=== PATIENT | female | born 1945 | race Caucasian/White ===

== ENCOUNTER 2024-01-06 12:29 | Outpatient (CLI) | payer MEDICARE, SELFPAY ==
--- NOTE | 2024-01-06 12:45 | USCV_ITS ---
Latosha [place] Age: 78 Gender: F : 1945 Exam Date: 01/06/2024 13:23 Ordering Phys: Paco Jo Technologist: [place] [facility] [place]: stenosis, previous left cea Risk Factors: Previous Vascular Surgery: Right Brachial BP: / Left Brachial BP: / Right Left Velocity (cm/s) Spectral Plaque Velocity (cm/s) Spectral Plaque Syst/Diast Broadening Syst/Diast Broadening 27.80/ 13.00 Prox CCA 56.70 / 16.50 35.10/ 17.90 Mid CCA 74.00 / 22.10 38.40/ 17.90 Distal CCA 65.10 / 20.50 278.50/90.40 Prox ICA 92.10 / 23.70 51.10/ 22.30 Mid ICA 102.30/ 20.70 31.20/ 16.50 Distal ICA 95.00 / 23.60 96.90 ECA 84.20 7.30 ICA/CCA 1.40 Bi- Vertebral Antegrade directiona l 18.00/ 0.00 cm/s 89.70/ 13.00 cm/s Bi Subclavian Bi 60.20 168.7 0 CONCLUSIONS Right ICA stenosis 70-99%. Severe atheromatous plaque right carotid bulb/ICA. Recommend neck CTA Left ICA stenosis <50%. Prior left CEA Bi directional Doppler flow noted in the right vertebral artery suggesting early subclavian steal. Normal antegrade Doppler flow noted in the left vertebral artery. Taj Benitez MD (Electronically Signed) Final Date: 06 January 2024 17:01 S
--- NOTE | 2024-01-06 13:45 | USCV_ITS ---
[facility] 78 Gender: F : 1945 Exam Date: 01/06/2024 12:44 Ordering Phys: Paco Jo Technologist: Exam Location: [facility] [place] Indication: cad BP: 170 / 100 HR: Rhythm: Sinus Technical Quality: Adequate MEASUREMENTS (Male / Female) Normal Values 2D ECHO LA Diameter 3.6 cm Aorta at Sinotubular Diameter 2.2 cm DOPPLER AV Peak Velocity 128.0 cm/s LVOT Peak Velocity 96.0 cm/s MV Area PHT 2.0 cm squared Mitral E to A Ratio 0.6 TR Peak Velocity 194.0 cm/s TR Peak Gradient 15.1 mmHg PV Peak Velocity 85.0 cm/s FINDINGS Left Ventricle Left ventricle is normal size. LV systolic function is normal with EF of 60-65%. No regional wall motion abnormalities are seen. Moderate left ventricular hypertrophy. Grade 1 diastolic dysfunction Right Ventricle Normal in size and function Right Atrium Normal in size Left Atrium Normal in size Mitral Valve Moderate mitral annular calcification. Mild mitral regurgitation. Aortic Valve Aortic valve is thickened. No significant stenosis or regurgitation. Tricuspid Valve Trace tricuspid regurgitation. Insufficient TR jet to evaluate RVSP. Pulmonic Valve Mild to moderate pulmonic regurgitation. Pericardium Normal Aorta Normal in size IVC Appears to be normal CONCLUSIONS LV systolic function is normal with EF of 60-65% Moderate left ventricular hypertrophy Grade 1 diastolic dysfunction Mild mitral regurgitation Trace tricuspid regurgitation Mild to moderate pulmonic regurgitation Compared to prior echocardiogram from 2016, no significant changes are seen Srinivas Singletary MD (Electronically Signed) Final Date: 21 January 2024 10:43 S
== END 2024-01-06 12:30 | disposition home or self-care (01) ==
LOC: RAD 12:30
PROVIDERS: Family Provider Nurse Practitioner; PCP Nurse Practitioner; Visit Provider Nurse Practitioner
DX: I34.0 Nonrheumatic mitral (valve) insufficiency (principal); I37.1 Nonrheumatic pulmonary valve insufficiency; I51.7 Cardiomegaly; I65.23 Occlusion and stenosis of bilateral carotid arteries
CPT/HCPCS: 93306; 93880

== ENCOUNTER 2024-01-08 09:00 | Outpatient (CLI) | payer MEDICARE, SELFPAY ==
[2024-01-08] MEDS: iohexol 350 mg/mL 500 mL Btl (per mL) IV (09:25)
--- NOTE | 2024-01-08 09:30 | CT_ITS ---
WS: [id number] CTA HEAD AND NECK TECHNIQUE: Contrast enhanced CTA of the head and neck with coronal and sagittal reformatted images an d maximum intensity projection (MIP) images. NASCET criteria utilized. CLINICAL INFORMATION: I65.21 - Occlusion and stenosis of right carotid artery COMPARISON: 2014 DLP: 1194.[address] scans at [facility] use at least one of these dose optimization techniques: automated e xposure control; mA and/or kV adjustment per patient size (includes targeted exams where dose is matc hed to clinical indication); or iterative reconstruction. FINDINGS: Mild small vessel changes. Moderate parenchymal volume loss. Tiny chronic lacunar infarct R IGHT caudate. Chronic infarct RIGHT paracentral occipital lobe with encephalomalacia. Partial opacifi cation of the ethmoid air cells. LEFT sphenoid sinusitis. Mastoid air cells are well aerated. Normal posterior nasopharynx. RIGHT: RIGHT common carotid artery is patent. Dense calcified atheromatous plaque RIGHT carotid bulb extending into the ICA. RIGHT CCA/ICA stenosis measures approximately 80% with a tiny residual lumen. Tortuous RIGHT ICA is patent to the skull base. LEFT: Prior LEFT CEA. LEFT common carotid artery is patent. No recurrent LEFT ICA stenosis. LEFT ICA is patent to the skull base. INTRACRANIAL CTA: Both vertebrals are patent. Basilar artery is patent. Normal vascularity to the ROD PLACER territory bilater ally. Patent LEFT posterior communicating artery. Cavernous carotid calcification. Patent anterior communicating artery. Normal vascularity to the JEANINE and MCA territories bilaterally. No evidence of proximal flow-limiting stenosis. Small RIGHT thyroid nodule measuring 3 mm. Advanced chronic emphysematous changes in the lung apices. IMPRESSION: 1. Severe carotid bulb and proximal RIGHT ICA stenosis with densely calcified plaque. Stenosis in th e distal CCA and proximal ICA with a tiny residual lumen measuring approximately 80%. RIGHT ICA remai ns patent to the skull base. 2. No significant or recurrent LEFT ICA stenosis post LEFT CEA 3. Codominant patent vertebral arteries bilaterally. 4.
[2024-01-08 09:31] LABS: Blood Urea Nitrogen 20 mg/dL (8-23)
== END 2024-01-08 09:01 | disposition home or self-care (01) ==
LOC: RAD 09:01
PROVIDERS: Family Provider Nurse Practitioner; PCP Nurse Practitioner; Visit Provider Nurse Practitioner
DX: I65.21 Occlusion and stenosis of right carotid artery (principal)
CPT/HCPCS: 70496; 70498; 82565; 84520; Q9967

== ENCOUNTER → 2024-01-12 12:11 | Outpatient (BNVA) | payer MEDICARE, SELFPAY | PROVIDERS: Family Provider Nurse Practitioner; PCP Nurse Practitioner; Visit Provider Nurse Practitioner | DX: E78.2 Mixed hyperlipidemia (principal); E11.9 Type 2 diabetes mellitus without complications | CPT/HCPCS: 80053; 80061; 83036; 84443; 85025 ==

== ENCOUNTER 2024-01-14 07:43 | Outpatient (CLI) | payer MEDICARE, SELFPAY ==
--- NOTE | 2024-01-14 08:00 | CT_ITS ---
WS: [id number] CT chest wo con [id number] HISTORY: R05.9 - Cough, unspecified TECHNIQUE: Axial imaging performed through the thorax. Coronal and sagittal reformats are submitted. All CT scans at [facility] use at least one of these dose optimization techniques: automated exposure control; mA and/or kV adjustment per patient size (includes targeted exams where dose is mat ched to clinical indication); or iterative reconstruction. CONTRAST: None DLP: 278.25 mGy.cm COMPARISON: Lumbar spine CT 04/07/2016. Lungs and central airway: Severe chronic emphysematous changes. Extensive peripheral interstitial thi ckening with subpleural cystic changes involving the upper and lower lobes. Bilateral interstitial th ickening with scattered areas of groundglass opacification. Subpleural stacking of cysts at the lung bases and bronchiectasis. Pleura: Normal. No pleural effusion. Heart and pericardium: Moderately enlarged heart. Extensive coronary artery calcifications. Mediastinum and jaycee: No adenopathy identified on this unenhanced exam of significance. Vessels: Moderate atherosclerosis aorta. Pulmonary artery size is equal to the aorta. Chest wall and lower neck: No soft tissue masses. Upper abdomen: Small hiatal hernia. Long-term stability LEFT adrenal mass measuring 1.6 x 1.8 cm. No increase in size since 2016. This is probably a benign adenoma. 1.5 cm cyst upper pole LEFT kidney. S plenic artery calcification. Osseous structures: Advanced thoracic spondylitic changes. Large bridging osteophytes along the thora cic spine. IMPRESSION: 1. Chronic interstitial appearing lung disease. There is involvement of both upper and lower lung fi elds. This can be seen with IPF or collagen vascular disease. There is honeycombing and traction bron chiectasis. Patient denied a history of smoking. If there is a history of smoking there are probably superimposed changes of chronic emphysema also. 2. No dense areas of consolidation or pneumonia. Recommend evaluation by pulmonology. 3. Extensive coronary artery calcifications in a moderately enlarged heart. 4. Stable LEFT adrenal mass since 2016. Due to long-term stability this is probably an adenoma.
== END 2024-01-14 07:44 | disposition home or self-care (01) ==
LOC: RAD 07:43
PROVIDERS: Family Provider Nurse Practitioner; PCP Nurse Practitioner; Visit Provider Nurse Practitioner
DX: R05.9 Cough, unspecified (principal); J98.4 Other disorders of lung; J47.9 Bronchiectasis, uncomplicated; I25.10 Atherosclerotic heart disease of native coronary artery without angina pectoris; I51.7 Cardiomegaly; E27.9 Disorder of adrenal gland, unspecified
CPT/HCPCS: 71250

== ENCOUNTER → 2024-01-18 13:14 | Outpatient (BNVA) | payer MEDICARE, SELFPAY | PROVIDERS: Family Provider Nurse Practitioner; PCP Nurse Practitioner; Visit Provider Thoracic Surgery (Cardiothoracic Vascular Surgery) | DX: I65.21 Occlusion and stenosis of right carotid artery (principal); Z87.891 Personal history of nicotine dependence; I10 Essential (primary) hypertension | CPT/HCPCS: 99203 ==

== ENCOUNTER → 2024-01-27 07:44 | Outpatient (BNVA) | payer MEDICARE, SELFPAY | PROVIDERS: Family Provider Nurse Practitioner; PCP Nurse Practitioner; Visit Provider Otolaryngology | DX: R49.0 Dysphonia (principal); J01.90 Acute sinusitis, unspecified; B96.89 Other specified bacterial agents as the cause of diseases classified elsewhere; J34.2 Deviated nasal septum; M95.0 Acquired deformity of nose | CPT/HCPCS: 31575; 99204; 99205 ==

== ENCOUNTER → 2024-02-16 11:00 | Outpatient (BNVA) | payer MEDICARE, SELFPAY | PROVIDERS: Family Provider Nurse Practitioner; PCP Nurse Practitioner; Visit Provider Otolaryngology | DX: J01.90 Acute sinusitis, unspecified (principal); B96.89 Other specified bacterial agents as the cause of diseases classified elsewhere; J34.2 Deviated nasal septum; M95.0 Acquired deformity of nose; R49.0 Dysphonia | CPT/HCPCS: 99212; 99213 ==

== ENCOUNTER → 2024-02-29 08:11 | Outpatient (BNVA) | payer MEDICARE, SELFPAY | PROVIDERS: Family Provider Nurse Practitioner; PCP Nurse Practitioner; Visit Provider Thoracic Surgery (Cardiothoracic Vascular Surgery) | DX: I65.21 Occlusion and stenosis of right carotid artery (principal); Z87.891 Personal history of nicotine dependence; I10 Essential (primary) hypertension | CPT/HCPCS: 99213 ==

== ENCOUNTER 2024-03-29 11:50 | Outpatient (CLI) | payer MEDICARE, MEDICAID, SELFPAY ==
--- NOTE | 2024-03-29 12:15 | CT_ITS ---
WS: [id number] CTA THORACIC TECHNIQUE: Contrast enhanced CTA of the thoracic aorta with coronal and sagittal reformatted images a nd maximum intensity projection (MIP) images. CLINICAL INFORMATION: subclavian stenosis COMPARISON: CTA 01/08/2024. CT chest 01/14/2024. Ultrasound 01/06/2024. DLP: 650.[address] scans at [facility] use at least one of these dose optimization techniques: automated e xposure control; mA and/or kV adjustment per patient size (includes targeted exams where dose is matc hed to clinical indication); or iterative reconstruction. FINDINGS: RIGHT subclavian artery is patent. Moderate calcified plaque at the RIGHT vertebral artery origin wit h severe origin stenosis. RIGHT innominate is patent. RIGHT common carotid artery is patent. LEFT com mon carotid artery is patent. LEFT subclavian artery is patent. LEFT vertebral artery is patent. Normal caliber thoracic aorta. Aortic calcification. Coronary calcification. Tiny RIGHT thyroid nodul e. No mediastinal or hilar lymphadenopathy. No axillary lymphadenopathy. Normal RIGHT adrenal gland. Stable LEFT adrenal lesion. Moderate esophageal hiatal hernia. Small sple nule. Partially visualized LEFT renal cyst. Hypertrophic changes thoracic spine. Advanced chronic emphysematous changes. Traction bronchiectasis and pleural parenchymal scarring jennifer lar to the prior studies. Honeycombing in the lung bases. Findings can be seen with idiopathic pulmon hoda fibrosis. Advanced degenerative arthritis RIGHT glenohumeral joint. CT/CT angio chest [id number] IMPRESSION: 1. RIGHT subclavian artery is patent. Moderate to severe stenosis at the RIGHT vertebral artery origin accounts for abnormal vertebral artery waveforms on th e recent ultrasound. No evidence of subclavian steal. 2. LEFT subclavian artery is patent. 3. Lung findings suspicious for IPF similar to the recent studies. 4. Moderate esophageal hiatal hernia.
[2024-03-29 12:38] LABS: Blood Urea Nitrogen 28 mg/dL (8-23)
== END 2024-03-29 11:51 | disposition home or self-care (01) ==
LOC: RAD 11:50
PROVIDERS: Family Provider Nurse Practitioner; PCP Nurse Practitioner; Visit Provider Thoracic Surgery (Cardiothoracic Vascular Surgery)
DX: I65.01 Occlusion and stenosis of right vertebral artery (principal); J47.9 Bronchiectasis, uncomplicated; R91.8 Other nonspecific abnormal finding of lung field; J98.4 Other disorders of lung; J84.10 Pulmonary fibrosis, unspecified; M13.811 Other specified arthritis, right shoulder
CPT/HCPCS: 71275; 82565; 84520

== ENCOUNTER 2024-05-02 10:22 | Inpatient (IN) | payer MEDICARE, MEDICAID, SELFPAY ==
[2024-04-28 08:51] LABS: Basophils # 0.1 10^3/uL (0.0-0.1); Basophils % 1.4 %; Eosinophils # 0.4 10^3/uL (0.0-0.8); Eosinophils % 5.6 %; Hematocrit 45.7 % (36-47); Lymphocytes # 1.9 10^3/uL (0.8-4.8); Mean Corpuscular HGB Conc 32.8 g/dL (30-55); Mean Corpuscular Hemoglobin 30.5 pg (27-33); Mean Corpuscular Volume 92.9 fl (85-98); Mean Platelet Volume 10.9 fL (7.4-10.4); Monocytes # 0.7 10^3/uL (0.2-0.9); Monocytes % 9.4 %; Neutrophils # 3.82 10^3/uL (1.8-7.7); Neutrophils % 55.2 %; Nucleated Red Blood Cells % 0 %; Platelet Count 204 10^3/cmm (157-399); Red Blood Count 4.92 10^6/uL (3.85-5.65); Red Cell Distribution Width 13.5 % (12.1-15.1); White Blood Count 6.93 10^3/uL (3.29-11.43)
[2024-04-28 09:08] LABS: Anion Gap 15.7 (5-19); Blood Urea Nitrogen 26 mg/dL (8-23); Calcium 9.2 mg/dL (8.5-10.5); Carbon Dioxide 20 mmol/L (22-29); Chloride 110 mmol/L (98-107); Glucose 99 mg/dL (65-115); Osmolality Calculated 297 mOsm/kg (285-295); Potassium 4.7 mmol/L (3.5-5.1); Sodium 141 mmol/L (136-145)
[2024-04-28 09:12] LABS: Add Urine Microscopic? YES; Bilirubin Urine Neg (Negative); Blood Urine Neg (Negative); Glucose Urine UA Norm (Normal); Ketones Urine Negative (Negative); Leukocyte Esterase Urine 1+ (Negative); Nitrate Urine Negative (Negative); Protein Urine Neg (Negative); Specific Gravity, Urine 1.025 (1.005-1.030); Urine Appearance Slightly Cloudy (CLEAR); Urine Color Yellow (Yellow); Urobilinogen Urine Norm (Negative); pH Urine 5 (5-7)
--- NOTE | 2024-04-28 09:14 | ECG_ITS ---
[facility] Test Date: 2024-04-28 Pat Name: Anabell Reina Department: Room: Gender: Female [employer]: : 1945 Requested By: Vlad Uriostegui Order Number: [id number] Tad MD: Raghavendra James M.D. Measurements Intervals [place] Rate: 61 P: 16 NC: 188 QRS: -25 QRSD: 88 T: 4 QT: 404 QTc: 409 Interpretive Statements SINUS RHYTHM BORDERLINE LEFT AXIS DEVIATION [QRS AXIS < -20] VOLTAGE CRITERIA FOR LVH [MEETS CRITERIA IN ONE OF: R(aVL), S(V1), R(V5), R(V5/V6)+S(V1)] Compared to ECG 05/15/2016 10:41:22 T-wave abnormality no longer present Electronically Signed On 04-28-2024 9:38:42 CDT by Raghavendra James M.D. [id number]
[2024-04-28 09:18] LABS: RBC Urine 0-4 /hpf (0-2); Transitional Epi Cells Urine 0-4 /hpf; WBC Urine 80-100 /hpf (0-5)
[2024-04-28 09:19] LABS: Add Urine Culture? Yes; Bacteria Urine 2+ /hpf
--- NOTE | 2024-04-28 09:24 | ANES.PREANE2 ---
Pre-Anesthetic Assessment Height/Weight: Height 1.52 m Preop Diagnosis: Severe right internal carotid artery stenosis Operation Date: 05/02/24 07:00 Proposed Procedures p Carotid Endarterectomy 46706, I65.29(Not Applicable) - Vlad Uriostegui MD Familial anesthetic complications: None Social No alcohol and No tobacco former smoker Exam alert, oriented x 3, clear to auscultation bilaterally and regular rate & rhythm Pulmonary Chronic Obstructive Pulmonary Disease and Cough (chronic) Low Spo2 reading, often in the upper 80s CV/HEM Hypertension and Myocardial Infarction (30 years ago) GI Gastroesophageal Reflux Disease Metabolic Thyroid Disease Neuropsych carotid artery stenosis Anesthetic Plan ASA status: 4 Anesthesia: General Other: A- line Risk of > 500 ml blood loss (7ml/kg in children): Yes, adequate IV access and fluids planned Medications/Allergies Home Medications Medication Instructions Recorded Confirmed Last Taken Type aspirin 325 mg tablet 325 mg PO DAILY 12/29/23 04/28/24 04/26/24 History atorvastatin 80 mg tablet 80 mg PO DAILY #30 tabs 03/07/24 04/28/24 04/27/24 Rx famotidine 20 mg tablet 20 mg PO BID #60 tabs 03/07/24 04/28/24 04/28/24 Rx fenofibrate 160 mg tablet 160 mg PO DAILY #30 tabs 03/07/24 04/28/24 04/27/24 Rx fluticasone fur. 100 mcg-umeclid 1 inh inhalation Q24H #60 ea 03/07/24 04/28/24 04/28/24 Rx 62.5 mcg-vilant 25 mcg inhalat.powder (Trelegy Ellipta) gabapentin 300 mg capsule 300 mg PO TID #90 caps 03/07/24 04/28/24 04/27/24 Rx isosorbide mononitrate 60 mg 120 mg (2 x 60 mg) PO DAILY #60 03/07/24 04/28/24 04/28/24 Rx tablet,extended release 24 hr tabs levothyroxine 25 mcg tablet 25 mcg PO DAILY #30 tabs 03/07/24 04/28/24 04/28/24 Rx lisinopril 10 mg tablet 10 mg PO DAILY #30 tabs 03/07/24 04/28/24 04/28/24 Rx magnesium oxide 800 mg (2 x 400 mg magnesium) PO 03/07/24 04/28/24 04/27/24 Rx .at bedtime #60 tabs metformin 1,000 mg tablet 1,000 mg PO DAILY #30 tabs 03/07/24 04/28/24 04/28/24 Rx tizanidine 4 mg tablet 4 mg PO BID PRN muscle spasticity 03/07/24 04/28/24 04/27/24 Rx #60 tabs aspirin 81 mg tablet,delayed 81 mg PO DAILY 04/28/24 04/28/24 04/27/24 History release Allergies Allergy/AdvReac Type Severity Reaction Status Date / Time clopidogrel [From Plavix] Allergy rash Verified 02/29/24 08:33 [facility] Anesthesia Medical History COPD (chronic obstructive pulmonary disease) CAD (coronary artery disease) Lumbar pain with radiation down right leg Hyperlipidemia, mixed Essential hypertension Diabetes mellitus with hyperglycemia, without long-term current use of insulin History of heart attack 3 Surgical History History of ganglion cyst Left History of carotid endarterectomy Left at [facility] H/O dilation and curettage History of knee replacement both knees History of carpal tunnel surgery both History of back surgery History of hysterectomy Family History Mother Breast cancer Diabetes Father Hypertension Brother Hypertension Other TIA (transient ischemic attack) Social History Smoking and tobacco/nicotine status: former use of tobacco/nicotine Second hand smoke exposure: No Alcohol intake: never Substance/Drug Use: never Adopted: No Caregiver/support person: No Lives independently: Yes Household members: none Housing: House Marital status: / Number of children: 6 service: No Current occupational status: retired Pets and animals: Yes Pets & animals: dog(s) Do you think of yourself as: Straight/Heterosexual Current gender identity: Female Data Anesthesia 04/28/24 08:33 04/28/24 08:33 Short CBC 04/28/24 Range/Units 08:33 WBC 6.93 (3.29-11.43) 10^3/uL Hgb 15.00 (11.27-16.99) g/dL Hct 45.7 (36-47) % MCV 92.9 (85-98) fl Plt Count 204 (157-399) 10^3/cmm Neut % (Auto) 55.2 % Neut # (Auto) 3.82 (1.8-7.7) 10^3/uL BMP 04/28/24 08:33 Sodium 141 Potassium 4.7 Chloride 110 H Carbon Dioxide 20 L BUN 26 H Creatinine 1.0 H Glucose 99 Calcium 9.2 Urine 04/28/24 Range/Units 08:33 Urine Color Yellow (Yellow) Urine Appearance Slightly cloudy (CLEAR) Urine pH 5 (5-7) Ur Specific [place] 1.025 (1.005-1.030) Urine Protein Neg (Negative) Urine Glucose (UA) Norm (Normal) Urine Ketones Negative (Negative) Urine Nitrate Negative (Negative) Urine Bilirubin Neg (Negative) Ur Leukocyte Esterase 1+ H (Negative) Urine RBC 0-4 H (0-2) /hpf Urine WBC 80-100 H (0-5) /hpf Blood Bank 04/28/24 08:33 Blood Type Cancelled Rho(D) Type Cancelled Antibody Screen Cancelled Cardiac Studies: Echocardiogram 01/06/24
[2024-05-02] VITALS (23 sets, daily range): BP systolic 83–178; BP diastolic 42–131; PULSE 42–80; RESP 13–25; TEMP 36.4–37; O2SAT 90–95; BMI 26.7
--- NOTE | 2024-05-02 06:18 | P.HP_ITS ---
Providers/Chief Complaint 2 Admitting Physician: Dr. Uriostegui Primary Care Provider: Paco Jo, CLAIMS CORRESPONDENCE CLERK-C Chief Complaint: I65.29 History of Present Illness Anabell Reina is a 78 year old female whom we have been following for known carotid disease and has been felt to have an 80% proximal right ICA distal right common carotid artery stenosis. She had a prior left carotid endarterectomy almost 10 years ago and has had no evidence for recurrent stenosis on that side. She has no TIA or amaurosis symptoms. Her right-sided lesion was found during routine surveillance after returning to our area after she had moved to [place], [place]. Duplex study of January 05 revealed a peak velocity of 278 cm/s the proximal right ICA with an ICA/CCA ratio of 7.3 on the right and 1.4 on the left. This was followed up with a CTA of the neckWhich was completed on January 07. That study noted a severe carotid bulb and proximal right ICA stenosis with dense calcified plaque. Stenosis had a residual lumen and with calculated approximately 80%. Right ICA remained patent of the skull base. There was no significant or recurrent left ICA stenosis. After these findings, we discussed consideration for elective right carotid endarterectomy to reduce her statistical increased risk for spontaneous CVA related to this high-grade lesion. We also noted on her duplex study reversal of flow in the right vertebral artery. We also had noted variance in blood pressure between the right and left arm and therefore obtained a chest CTA on March 29. That study noted moderate to severe stenosis of the right vertebral artery origin which would account for the abnormal vertebral artery waveform. There was no evidence for subclavian steal however. Left subclavian artery was patent. She has noted to have chronic interstitial lung disease as documented by chest CT scan of January 13. She has a stable left adrenal mass since 2016. She is scheduled for further follow-up related to the imaging findings of her chest CT. Due to some persistent hoarseness, last my colleague, Dr. Babcock from our ENT service to evaluate Ms. Reina. Nasopharyngoscopy was performed and revealed no evidence for vocal cord abnormality or motion concerns. She was felt however, to have sinusitis and was treated, which has resulted in normalization of her voice quality. Ms. Reina appears well today. She is somewhat depressed as she lost her grandson who is 29 years old recently and his is today in [place]. Her approximately a year and a half ago after a arreola with cancer. She remains in good spirits despite this however and was quite conversive. Review of Systems 2 Const: Denies: fever(s), chills, change in appetite, change in weight, fatigue or night sweats Eyes: Denies: change in vision or blurry vision ENMT: Denies: odynophagia or hoarseness Card: Denies: chest pain, palpitations, irregular heart rhythm or edema Resp: Denies: dyspnea or productive cough GI: Denies: abdominal pain, nausea, vomiting, dysphagia, heartburn or change in bowel habits : Denies: dysuria, urinary frequency, urinary urgency or urinary hesitancy Musc: Denies: extremity pain or extremity swelling Skin/Breast: Denies: rash Neuro: Denies: headache(s), numbness in extremities, weakness in extremities or sensory changes Psych: Denies: anxiety, depression or change in appetite Endo: Denies: polyuria, polydipsia or cold intolerance Rios/Lymph: Denies: easy bruising, easy bleeding, petechiae or enlarged lymph nodes Medications/Allergies Home Medications Medication Instructions Recorded Confirmed Last Taken Type aspirin 325 mg tablet 325 mg PO DAILY 12/29/23 04/28/24 04/26/24 History atorvastatin 80 mg tablet 80 mg PO DAILY #30 tabs 03/07/24 04/28/24 04/27/24 Rx famotidine 20 mg tablet 20 mg PO BID #60 tabs 03/07/24 04/28/24 04/28/24 Rx fenofibrate 160 mg tablet 160 mg PO DAILY #30 tabs 03/07/24 04/28/24 04/27/24 Rx fluticasone fur. 100 mcg-umeclid 1 inh inhalation Q24H #60 ea 03/07/24 04/28/24 04/28/24 Rx 62.5 mcg-vilant 25 mcg inhalat.powder (Trelegy Ellipta) gabapentin 300 mg capsule 300 mg PO TID #90 caps 03/07/24 04/28/24 04/27/24 Rx isosorbide mononitrate 60 mg 120 mg (2 x 60 mg) PO DAILY #60 03/07/24 04/28/24 04/28/24 Rx tablet,extended release 24 hr tabs levothyroxine 25 mcg tablet 25 mcg PO DAILY #30 tabs 03/07/24 04/28/24 04/28/24 Rx lisinopril 10 mg tablet 10 mg PO DAILY #30 tabs 03/07/24 04/28/24 04/28/24 Rx magnesium oxide 800 mg (2 x 400 mg magnesium) PO 03/07/24 04/28/24 04/27/24 Rx .at bedtime #60 tabs metformin 1,000 mg tablet 1,000 mg PO DAILY #30 tabs 03/07/24 04/28/24 04/28/24 Rx tizanidine 4 mg tablet 4 mg PO BID PRN muscle spasticity 03/07/24 04/28/24 04/27/24 Rx #60 tabs aspirin 81 mg tablet,delayed 81 mg PO DAILY 04/28/24 04/28/24 04/27/24 History release Allergies Allergy/AdvReac Type Severity Reaction Status Date / Time clopidogrel [From Plavix] Allergy rash Verified 02/29/24 08:33 PFSH Acute 2 PFSH: Medical History COPD (chronic obstructive pulmonary disease) CAD (coronary artery disease) Lumbar pain with radiation down right leg Hyperlipidemia, mixed Essential hypertension Diabetes mellitus with hyperglycemia, without long-term current use of insulin History of heart attack 3 Surgical History History of ganglion cyst Left History of carotid endarterectomy Left at [facility] H/O dilation and curettage History of knee replacement both knees History of carpal tunnel surgery both History of back surgery History of hysterectomy Family History Mother Breast cancer Diabetes Father Hypertension Brother Hypertension Other TIA (transient ischemic attack) Social History Smoking and tobacco/nicotine status: former use of tobacco/nicotine Second hand smoke exposure: No Alcohol intake: never Substance/Drug Use: never Adopted: No Caregiver/support person: No Lives independently: Yes Household members: none Housing: House Marital status: / Number of children: 6 service: No Current occupational status: retired Pets and animals: Yes Pets & animals: dog(s) Do you think of yourself as: Straight/Heterosexual Current gender identity: Female Physical Exam 2 Const: COMMON NORMALS: patient oriented x3 and alert O RIENTATION/CONSCIOUSNESS: Yes oriented to person, Yes oriented to place and Yes oriented to time HENMT: COMMON NORMALS: normocephalic HEAD & SCALP: normocephalic; no cranial bruits Neck/C-Spine: COMMON NORMALS: full ROM, supple, no JVD and No carotid bruits GENERAL: Yes trachea midline CERVICAL SPINE: Yes cervical ROM normal Chest: COMMONS NORMALS: normal inspection of the chest and normal palpation of entire chest wall Resp: COMMON NORMALS: normal respiratory effort, No use of accessory muscles, clear to auscultation bilaterally and percussion normal EFFORT & INSPECTION: Yes able to speak in complete sentences and Yes symmetric chest movement A USCULTATION: clear to auscultation bilaterally PERCUSSION: percussion normal Cardio: COMMON NORMALS: no JVD, regular rate, regular rhythm, S1 normal heart sound present, S2 normal heart sound present, No gallops present (Cardio), No murmurs present (Cardio), No rub (Cardio) and Peripheral pulses 2+ throughout JUGULAR VENOUS DISTENTION: no JVD RATE: regular rate RHYTHM: regular rhythm HEART SOUNDS: S1 normal heart sound present and S2 normal heart sound present PERIPHERAL PULSES: Peripheral pulses 2+ throughout and other (Easily palpable radial pulses bilaterally despite the known blood pressure ) GI: COMMON NORMALS: Normal to inspection, nondistended, normoactive bowel sounds present Extremity: COMMON NORMALS: normal to inspection, full ROM and no clubbing, cyanosis or edema NARRATIVE EXTREMITY EXAM: Modest ulnar deviation of the metacarpal phalangeal joints bilaterally Neuro: COMMON NORMALS: patient oriented x3, no focal motor deficits and no sensory deficits noted SENSORIUM/ORIENTATION: Yes alert, Yes oriented to person, Yes oriented to place and Yes oriented to time GAIT: Yes Normal gait present Data 04/28/24 08:33 04/28/24 08:33 A&P Assessment and plan (1) Carotid stenosis, right: 80% calcific right internal carotid artery stenosis proximally. Again, rationale for carotid endarterectomy was discussed through hopefully reduce her statistical increased risk for spontaneous CVA. Risk of surgery were again carefully reviewed. These include possibility of , stroke, heart attack, major bleeding, infection, deviation of the tongue, temporary or permanent hoarseness, asymmetry of the face, need for more surgery or long-term surveillance, and pain with the surgery. She has had prior left carotid endarterectomy almost 10 years ago and appears comfortable to proceed. She understands that this is a procedure recommended for prophylaxis against a potential statistical increased risk for stroke and that there is a potential for stroke itself from the procedure. She stated understanding. Attestations 2 Medical Necessity Statement*: 80% right internal carotid artery stenos is Coding Level of Care Code Acute Code for [facility] Diagnoses Carotid stenosis, right I65.21
[2024-05-02] MEDS: sodium chloride 0.9% 1,000 ML 30 ML IV (06:28)
[2024-05-02 06:31] LABS: Glucose Point of Care 94 mg/dL (70-110)
--- NOTE | 2024-05-02 06:44 | PC.NURSE ---
BP LEFT ARM: 178/131, BP RIGHT ARM 136/113. MD AND ANESTHESIA AWARE
[2024-05-02] MEDS: ceFAZolin 2,000 MG in sodium chloride 0.9% (plus) 50 ML 100 MG IV (07:09)
--- NOTE | 2024-05-02 07:56 | SUR.OPER ---
called daughter and notified her of surgical start.
[2024-05-02] MEDS: heparin, porcine 1,000 unit/mL INJ 10 mL 10000 UNIT INJECTION (08:04)
[2024-05-02] MEDS: vancomycin 1,000 MG SDV 1000 MG IRRIGATION (08:05)
[2024-05-02] MEDS: lidocaine 1% INJ 10 mL (per mL) XX (08:05)
--- NOTE | 2024-05-02 08:34 | P.ANESUD_ITS ---
Pre-Anesthetic Update Pre-Anesthetic Assessment: Date of Surgery/Procedure: 05/02/24 Preop Lisa gnosis: Severe right internal carotid artery stenosis Proposed Procedure: Operation Date: 05/02/24 07:00 Proposed Procedures p Carotid Endarterectomy 06395, I65.29(Not Applicable) - Vlad Uriostegui MD Any changes to Pre-Anesthetic Assessment?: No Last Intake: Intake Last Liquid Date 05/01/24 Last Liquid Time 21:00 Last Solid Date 05/01/24 Last Solid Time 21:00 Labs Last 48hrs: Blood Bank 04/28/24 08:33 Blood Type A Positive Rho(D) Type Rh positive Antibody Screen Negative Vitals: Temperature 98.6 F 05/02/24 06:23 Temperature Source Temporal Artery S can 05/02/24 06:23 Pulse Rate 80 05/02/24 06:23 Respiratory Rate 16 05/02/24 06:23 Blood Pressure 178/131 05/02/24 06:24 Blood Pressure Carey n 146 05/02/24 06:24 Pulse Oximetry 91 05/02/24 06:23 Oxygen Delivery Me thod Room Air 05/02/24 06:23 Exam: Pre-Anes Outpt Exam: alert, oriented x 3, clear to auscultation bilaterally and regular rate & rhythm Cardiac Studies: Echocardiogram 01/06/24
--- NOTE | 2024-05-02 09:10 | SUR.OPER ---
attempted to contact daughter to update her on surgical progress. no answer.
[2024-05-02] MEDS: aspirin 325 mg Tablet PO (11:51)
--- NOTE | 2024-05-02 11:51 | P.OP_ITS ---
Operative Report Date of procedure: May 02, 2024 Pre-op diagnosis: High-grade right internal carotid artery stenosis Post-op diagnosis: same Procedure done: Right carotid endarterectomy with patch angioplasty Implants: Hemashield patch Specimens removed/disposition: Right carotid artery plaque Surgeon: Vlad Uriostegui MD Anesthesia: General Complications: None: Neurologically intact immediately postop Findings: Very calcific and friable plaque at the bifurcation in the right carotid artery Condition: stable Disposition: ICU Brief History: Ms. Reina is a pleasant 78-year-old female with a known history for carotid artery disease status post left carotid endarterectomy approximately 10 years ago. She left our area and recently returned where we reinitiated carotid surveillance and demonstrated elevated velocities elevated right ICA to CCA ratio. This prompted a CTA of the neck which confirmed a high-grade 80% right carotid artery stenosis at the bifurcation. After careful preoperative evaluation including evaluation by our ENT service for hoarseness, which was determined to be related to sinusitis, she was subsidy scheduled for planned endarterectomy. Details and risk of the procedure were carefully and frankly discussed. Appropriate consents were reviewed and signed. Procedure: Ms. Reina was placed on the OR table and underwent general endotracheal anesthesia with a neurological monitoring endotracheal tube as well as placement of a left radial arterial line. Bihemispheric monitoring pads were placed as well as grounding and sensing pads for nerve conduction evaluation during neck dissection. The entire upper chest and right neck were sterilely prepped and draped. Incision was made along the anterior border of the sternomastoid muscle and carried down to the platysma with cautery. Dissection from this point forward was carried out utilizing Metzenbaum scissors and limited use of bipolar cautery. The internal jugular vein was dissected free and rotated medially as we had identified what appears to be a nonrecurrent right recurrent laryngeal nerve. This was confirmed with nerve conduction evaluation intraoperatively. Dissection was continued down through the ansa cervicalis with preservation of major branches. Minor branches were divided if required to allow for adequate exposure. Nerve conduction evaluation was performed throughout the dissection for protection of the recurrent nerve. We subsequently reached the common carotid artery. Dissection was then continued proximally to distally across the bifurcation. In addition to the right nonrecurrent recurrent laryngeal nerve, the vagus nerve was also identified. Vessel loops were placed around the common carotid artery, internal carotid artery, and external carotid artery. Dista lly, the base of the hypoglossal nerve could be identified and was protected. This did require some traction in this region, but great care was taken to minimize pressure to the hypoglossal nerve, which was protected. Care was taken during this dissection to avoid injury to the vagus nerve. The patient was then heparinized with 10,000 units. The systolic blood pressure was elevated to 160. Following this, in a rapid sequenced fashion, the distal internal carotid artery was clamped followed by clamping of the common carotid artery and external carotid artery. #11 scalpel blade was used to open the common carotid artery proximally. Snider scissors were then utilized to extend this arteriotomy across the distal common carotid artery and ulcerated very stenotic plaque and continue this further at the bifurcation across the calcific plaque in the internal carotid artery until we had reached normal intima. The internal carotid artery clamp was briefly flashed with evidence of brisk back bleeding, therefore we elected not to shunt. It should be noted that bi- hemispheric oximetry was recorded throughout the procedure. Next, a freer elevator was utilized to create a dissection plane the plaque from intima at the proximal portion of the arteriotomy. This was then divided with a #11 scalpel blade. This plaque was then further dissected along the intimal plane proximally to distally across the bifurcation. Utilizing an everting technique, plaque was removed from the external carotid artery with brisk flow. This plaque was then dissected free up the internal carotid artery to a feathered edge. Heparinized saline solution was utilized to remove any loose debris. Next, a Hemashield patch was brought into the field and sewn into position utilizing a running 6-0 Prolene suture, thereby completing our patch angioplasty. At the completion of the patch, the external carotid artery was opened followed by the common carotid artery and finally the internal carotid artery, thereby reestablishing cerebral flow. Areas of extravasation were repaired with 6-0 Prolene suture. It should be noted that with clamps in place, there was some traction on the recurrent nerve but great care was taken to minimize this. This resolved with removal of vascular clamps. After 5 minutes, heparin was reversed with protamine. Hemostasis was confirmed. The wound was irrigated with antibiotic solution. A small, flat, Iraj-Rya drain was placed in the wound and connected to bulb suction. Sponge and needle count was correct. The recurrent nerve was tested again just prior to skin closure, and did reveal an active signal, confirming continuity. The wound was then closed in 2 layers of 3-0 Vicryl suture. Skin was reapproximated in a subcuticular manner with 4-0 Monocryl suture. A pressure dressing was then applied. The patient was awakened from anesthesia and spontaneous movement of all extremities as well as movement to command was noted. The patient was then transferred to the ICU in stable condition. I did financial health counselor with the family at completion of the procedure. Ms. Reina will be monitored in the ICU overnight.
[2024-05-02 12:05] LABS: Glucose Point of Care 113 mg/dL (70-110)
[2024-05-02] MEDS: ipratropium-albuterol 3 mL Neb INHALATION ×3 (12:28→20:16)
[2024-05-02] MEDS: sodium chloride 0.9% 250 ML 999 ML IV (13:12)
[2024-05-02] MEDS: HYDROcodone-acetaminophen 5-325 mg Tablet 1 TAB PO (13:15)
[2024-05-02] MEDS: ceFAZolin 1,000 MG in sodium chloride 0.9% (plus) 50 ML 100 MG IV ×2 (14:20→23:22)
[2024-05-02] MEDS: gabapentin 300 mg Capsule PO ×2 (14:20→20:19)
--- NOTE | 2024-05-02 15:39 | ANE.PACU2 ---
Inpatient post-anesthesia follow up: Airway intact: Yes Vital signs: Temperature 98.6 F Pulse Rate 63 Respiratory Rate 16 Blood Pressure 178/131 Pulse Oximetry 94 Oxygen Delivery Me thod Nasal Cannula Oxygen Flow Rate 5 Fraction of Inspir ed Oxygen Hydration adequate: Yes Nausea and vomiting: No Pain level: 2 Mental status: Baseline
[2024-05-02] MEDS: morphine 4 mg/mL SDV 1 mL 2 MG IVP (16:12)
[2024-05-02 17:36] LABS: Glucose Point of Care 125 mg/dL (70-110)
[2024-05-02] MEDS: famotidine 20 mg Tablet PO (18:10)
--- NOTE | 2024-05-02 19:41 | PC.NURSE ---
pt postion and bedding pt up to chair at this time. pt bed made with new linens.
[2024-05-02] MEDS: budesonide 0.5 mg/2 mL Neb INHALATION (20:16)
[2024-05-02 20:17] LABS: Glucose Point of Care 199 mg/dL (70-110)
[2024-05-02] MEDS: insulin lispro 100 unit/1 mL SUBCUT (20:18)
[2024-05-02] MEDS: magnesium oxide 400 mg tablet 800 MG PO (20:19)
[2024-05-02] MEDS: sodium chloride 0.9% 250 ML IV (21:20)
[2024-05-02] MEDS: lactated ringers 1,000 ML 100 ML IV (21:23)
--- NOTE | 2024-05-02 22:04 | PC.NURSE ---
physician notification this nurse called physician for pt bp maps being 60's and heart rate being 40's. given order for 250 ns bolus and 100ml/hr lr for the remainder of the night. also notified him we removed catheter.
[2024-05-03] VITALS (26 sets, daily range): BP systolic 85–125; BP diastolic 44–68; PULSE 35–54; RESP 14–21; TEMP 36.3–37; O2SAT 85–96
[2024-05-03] MEDS: HYDROcodone-acetaminophen 5-325 mg Tablet 1 TAB PO ×2 (06:27→10:18)
[2024-05-03] MEDS: ceFAZolin 1,000 MG in sodium chloride 0.9% (plus) 50 ML 50 MG IV (06:28)
--- NOTE | 2024-05-03 07:03 | PM.DCS ---
Discharge Providers Date of Admission: 05/02/24 10:22 Date of Discharge: May 03, 2024 Attending Provider at Admission: Vlad Uriostegui MD Attending Provider at Discharge: Vlad Uriostegui MD Primary Care Provider: ANNALISA Blanchard Diagnoses at Discharge Discharge Diagnosis (1) Carotid stenosis, right: Details from hospital stay: Ms. Reina is a pleasant 78-year-old female with an 80% right ICA stenosis noted on routine surveillance. She is status post left carotid endarterectomy 10 years ago. She was seen on outpatient basis to discuss recommendation to consider elective endarterectomy to reduce her statistical increased risk for spontaneous CVA related to this high-grade calcific lesion. Details the risk of surgery were carefully and frankly discussed and she wished to proceed. She was electively admitted on May 02 and underwent right carotid endarterectomy with patch angioplasty. Postoperatively, she convalesced in the ICU where she remained hemodynamically and neurologically stable. She did receive 2 small fluid boluses for blood pressure in the low 80s. She was asymptomatic. Neurologically she remained intact. She is at low LILIA drain output. Incision is clean and dry on postop day #1. LILIA drain was removed. She has no swallowing or phonation difficulties. Tolerating diet well. Strength is 5/5 bilaterally. No sensory concerns. She has maintained a relatively low O2 saturation in the 80s without oxygen supplementation. This was noted preoperatively. She is scheduled for pulmonary evaluation later this month. She has known fibrosis on chest x-ray and confirmed by CT scan. 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 She will be scheduled to follow-up with me at [facility] wound care clinic in 1 week's I will now be stationed on that service. At the time of discharge, Ms. Reina is in stable condition. Status: Acute Reason for Visit Reason for Visit: I65.29 Physical Exam Const: COMMON NORMALS: patient oriented x3 HENMT: COMMON NORMALS: normocephalic, atraumatic, hearing grossly normal bilaterally and external ears normal HEAD & SCALP: normocephalic and atraumatic EXTERNAL EAR: Yes external ears normal Neck/C-Spine: COMMON NORMALS: full ROM, no lymphadenopathy and No carotid bruits OTHER: Right neck incision is clean and dry. No substantial swelling. Minimal periwound ecchymosis. LILIA drain was removed with low output. Resp: COMMON NORMALS: normal respiratory effort OTHER: Slightly delayed expiratory phase. No wheezes. O2 saturation does dip to the mid 80s without oxygen supplementation. We will confirm by respiratory therapy evaluation and order appropriate home oxygen therapy until her evaluation by pulmonary services at the end of this month. Cardio: COMMON NORMALS: regular rate, regular rhythm and No murmurs present (Cardio) RATE: regular rate RHYTHM: regular rhythm Neuro: COMMON NORMALS: patient oriented x3, moves all extremities, no focal motor deficits, no sensory deficits noted and gait normal OTHER: Tongue is midline with protrusion. No swallowing difficulties. Phonation reveals very minimal hoarseness which is improving since immediately postop. Urinary Catheter Management: Trejo: Cath Placed During This Visit: yes, but has since been removed by the nurse Reason for Continuing Indwelling Catheter: Decision to DC Catheter Urinary Catheter Date of Insertion: 05/02/24 Urinary Catheter Time of Insertion: 07:20 Date Urinary Catheter Removed: 05/02/24 Time Urinary Catheter Discontinued: 21:36 Discharge Data Studies Completed and Pending Pending at discharge Category Date Time Status Leukocyte Reduced RBC Routine Lab 04/28/24 08:33 Results Type and Screen - Cardiac Routine Lab 04/28/24 08:33 Results Pathology: Surgical [PTH] Routine Pth 05/02/24 10:12 Received Laboratory Results WBC 6.93 10^3/uL (3.29-11.43) 04/28/24 08:33 RBC 4.92 10^6/uL (3.85-5.65) 04/28/24 08:33 Hgb 15.00 g/dL (11.27-16.99) 04/28/24 08:33 Hct 45.7 % (36-47) 04/28/24 08:33 MCV 92.9 fl (85-98) 04/28/24 08:33 MCH 30.5 pg (27-33) 04/28/24 08:33 MCHC 32.8 g/dL (30-55) 04/28/24 08:33 RDW 13.5 % (12.1-15.1) 04/28/24 08:33 Plt Count 204 10^3/cmm (157-399) 04/28/24 08:33 MPV 10.9 fL (7.4-10.4) H 04/28/24 08:33 Neut % (Auto) 55.2 % 04/28/24 08:33 Lymph % (Auto) 28.0 % 04/28/24 08:33 [place] % (Auto) 9.4 % 04/28/24 08:33 Eos % (Auto) 5.6 % 04/28/24 08:33 Baso % (Auto) 1.4 % 04/28/24 08:33 Neut # (Auto) 3.82 10^3/uL (1.8-7.7) 04/28/24 08:33 Lymph # (Auto) 1.9 10^3/uL (0.8-4.8) 04/28/24 08:33 [place] # (Auto) 0.7 10^3/uL (0.2-0.9) 04/28/24 08:33 Eos # (Auto) 0.4 10^3/uL (0.0-0.8) 04/28/24 08:33 Baso # (Auto) 0.1 10^3/uL (0.0-0.1) 04/28/24 08:33 Nucleated RBC % (auto) 0 % 04/28/24 08:33 Nucleated RBCs # 0.0 /100WBC 04/28/24 08:33 Sodium 141 mmol/L (136-145) 04/28/24 08:33 Potassium 4.7 mmol/L (3.5-5.1) 04/28/24 08:33 Chloride 110 mmol/L (98-107) H 04/28/24 08:33 Carbon Dioxide 20 mmol/L (22-29) L 04/28/24 08:33 Anion Gap 15.7 (5-19) 04/28/24 08:33 BUN 26 mg/dL (8-23) H 04/28/24 08:33 Creatinine 1.0 mg/dL (0.5-0.9) H 04/28/24 08:33 GFR Calculation Not Reportable 04/28/24 08:33 Glucose 99 mg/dL (65-115) 04/28/24 08:33 POC Glucose 199 mg/dL (70-110) H 05/02/24 20:12 Calculated Osmolality 297 mOsm/kg (285-295) H 04/28/24 08:33 Calcium 9.2 mg/dL (8.5-10.5) 04/28/24 08:33 Urine Color Yellow (Yellow) 04/28/24 08:33 Urine Appearance Slightly cloudy (CLEAR) 04/28/24 08:33 Urine pH 5 (5-7) 04/28/24 08:33 Ur Specific [place] 1.025 (1.005-1.030) 04/28/24 08:33 Urine Protein Neg (Negative) 04/28/24 08:33 Urine Glucose (UA) Norm (Normal) 04/28/24 08:33 Urine Ketones Negative (Negative) 04/28/24 08:33 Urine Blood Neg (Negative) 04/28/24 08:33 Urine Nitrate Negative (Negative) 04/28/24 08:33 Urine Bilirubin Neg (Negative) 04/28/24 08:33 Urine Urobilinogen Norm mg/dL (Negative) 04/28/24 08:33 Ur Leukocyte Esterase 1+ (Negative) H 04/28/24 08:33 Urine RBC 0-4 /hpf (0-2) H 04/28/24 08:33 Urine WBC 80-100 /hpf (0-5) H 04/28/24 08:33 Ur Squamous Epith Cells 10-15 /hpf (0-5) H 04/28/24 08:33 Ur Transition Epith Cell 0-4 /hpf 04/28/24 08:33 Amorphous Sediment Not Reportable 04/28/24 08:33 Urine Bacteria 2+ /hpf (NONE) H 04/28/24 08:33 Urine Mucus None /hpf 04/28/24 08:33 Blood Type A Positive 04/28/24 08:33 Blood Type Cancelled 04/28/24 08:33 Rho(D) Type Cancelled 04/28/24 08:33 Rho(D) Type Rh positive 04/28/24 08:33 Antibody Screen Cancelled 04/28/24 08:33 Antibody Screen Negative 04/28/24 08:33 Crossmatch See Detail 04/28/24 08:33 Procedures Performed Right carotid endarterectomy with patch angioplasty on May 02, 2024 Vitals Last Vital Signs Temp 97.5 F L 05/03/24 06:33 Pulse 40 L 05/03/24 06:30 Resp 17 05/03/24 06:30 BP 115/46 05/03/24 06:30 Pulse Ox 96 05/03/24 06:30 O2 Del Method Nasal Cannula 05/02/24 23:11 O2 Flow Rate 4 05/02/24 23:11 Discharge Plan Discharge Patient Disposition: Home Condition: Stable Prescriptions: New hydrocodone-acetaminophen 5-325 mg Tablet 1 tab PO Q6H PRN (Reason: Moderate Pain) Qty: 12 0RF cephalexin 500 mg capsule 500 mg PO Q8H Qty: 6 0RF Continued atorvastatin 80 mg tablet 80 mg PO DAILY Qty: 30 2RF famotidine 20 mg tablet 20 mg PO BID Qty: 60 2RF fenofibrate 160 mg tablet 160 mg PO DAILY Qty: 30 2RF Trelegy Ellipta 100-62.5-25 mcg blister with device 1 inh inhalation Q24H Qty: 60 2RF gabapentin 300 mg capsule 300 mg PO TID Qty: 90 2RF isosorbide mononitrate 60 mg tablet extended release 24 hr 120 mg PO DAILY Qty: 60 2RF levothyroxine 25 mcg tablet 25 mcg PO DAILY Qty: 30 2RF lisinopril 10 mg tablet 10 mg PO DAILY Qty: 30 2RF magnesium oxide 400 mg magnesium tablet 800 mg PO .at bedtime Qty: 60 2RF metformin 1,000 mg tablet 1,000 mg PO DAILY Qty: 30 2RF tizanidine 4 mg tablet 4 mg PO BID PRN (Reason: muscle spasticity) Qty: 60 2RF aspirin 81 mg Tablet,Delayed Release (Dr/Ec) 81 mg PO DAILY Rx Instructions: for 5 days prior to surgery scheduled 05/02/24. Discontinued aspirin 325 mg tablet 325 mg PO DAILY Discharge Orders: Discharge Order (Routine); Ordered 05/03/24 Ordered By: Vlad Uriostegui Referrals: Vlad Uriostegui MD [Physician] - 1 week (Followup with me will be at Wound Care Clinic, not at Cardiology clinic) Discharge Diet: Usual diet Discharge Activity: Limit activity as instructed Patient Instructions: Acute Wound Care (DC), Opioid Safety, Post Anesthesia Care Activity Restrictions/Additional Instructions: No heavy lifting or pulling x 2 weeks May remove bandage tomorrow. May begin showers tomorrow. No swimming or tub baths x 2 weeks Skin adhesive will begin to separate within 1 week. Report any redness, swelling, increased pain, swallowing difficulties. Report any concerns of neurologic condition. Follow-up will be 1 week to see me at the [facility] wound care clinic. Discharge Attestations Time Spent in Discharge Care*: less than 30 min Specific Discharge Activities: educating patient, discussing with briefcase sewer/social workers/dc planners, documenting/other paperwork and evaluating patient/reviewing data Status at Discharge: Cognitive status at discharge: cognitively intact, Behavioral status at discharge: cooperative, Functional status at discharge: independent ambulation, Overall status at discharge: patient is progressing back to baseline Quality Metrics Clinical Quality Measures [ No reported AMI, CVA or VTE this stay] Coding Level of Care Code Acute Code for Chg Fwd Diagnoses Carotid stenosis, right I65.21
[2024-05-03] MEDS: ipratropium-albuterol 3 mL Neb INHALATION (08:28)
[2024-05-03] MEDS: budesonide 0.5 mg/2 mL Neb INHALATION (08:28)
[2024-05-03] MEDS: aspirin 325 mg Tablet PO (08:30)
[2024-05-03] MEDS: levothyroxine 25 mcg Tablet PO (08:30)
[2024-05-03] MEDS: gabapentin 300 mg Capsule PO (08:30)
[2024-05-03] MEDS: atorvastatin 40 mg Tablet 80 MG PO (08:30)
[2024-05-03] MEDS: famotidine 20 mg Tablet PO (08:30)
[2024-05-03] MEDS: lactated ringers 1,000 ML 100 ML IV (08:31)
[2024-05-03 12:34] LABS: Glucose Point of Care 84 mg/dL (70-110)
== END 2024-05-03 11:05 | disposition home or self-care (01) | DRG 39 ==
LOC: ICU 10:23
PROVIDERS: Admitting Provider Thoracic Surgery (Cardiothoracic Vascular Surgery); PCP Nurse Practitioner; Visit Provider Thoracic Surgery (Cardiothoracic Vascular Surgery)
PROC: 03CK0ZZ Extirpation of Matter from Right Internal Carotid Artery, Open Approach (ICD-10-PCS; CPT 35301; principal; 2024-05-02 07:00)
DX: I65.21 Occlusion and stenosis of right carotid artery (principal); Z98.890 Other specified postprocedural states; I65.01 Occlusion and stenosis of right vertebral artery; J44.9 Chronic obstructive pulmonary disease, unspecified; F32.A Depression, unspecified; Z79.82 Long term (current) use of aspirin; Z79.84 Long term (current) use of oral hypoglycemic drugs; I25.10 Atherosclerotic heart disease of native coronary artery without angina pectoris; E78.2 Mixed hyperlipidemia; I10 Essential (primary) hypertension; E11.9 Type 2 diabetes mellitus without complications; I25.2 Old myocardial infarction; Z96.653 Presence of artificial knee joint, bilateral; Z87.891 Personal history of nicotine dependence
CPT/HCPCS: 36415; 36416; 51702; 51798; 80048; 81001; 82962; 85025; 86850; 86900; 86920; 87077; 87086; 87186; 88304; 93005; 94640; 94760; 96372; 96374; 96376; J0690; J1170; J1644; J1815; J2270; J2371; J2405; J2704; J2720; J3010; J3370; J3490; J7030; J7050; J7120; J7626

== ENCOUNTER 2024-05-11 10:17 | Emergency (ER) | payer MEDICARE, MEDICAID, SELFPAY ==
[2024-05-11] VITALS (11 sets, daily range): BP systolic 82–157; BP diastolic 53–91; PULSE 67–77; RESP 18; TEMP 36.4; O2SAT 89–92
--- NOTE | 2024-05-11 10:32 | W.ED.AMS ---
HPI - Altered Mental Status General: Chief Complaint: Altered Mental Status Stated Complaint: ams, hypotensive Time Seen by Provider: 05/11/24 10:20 Source: patient and EMS Mode of arrival: EMS Limitations: no limitations History of Present Illness: This patient was transported from her domicile by EMS. She apparently was found sitting in her chair this morning by her daughter and her daughter states that she could not seem to arouse her to a normal level of consciousness and there for notified EMS. EMS noted on arrival she was alert and awake wearing nasal cannula supplemental oxygen and has been stable during transport. There was no history of seizure. She had no focal weakness or difficulty speaking upon arousing. She complained of no symptoms. Patient was recently admitted to this facility on the first part of May for a carotid endarterectomy. She was discharged on or about May 02 or . She was then noted to have a similar occurrence a couple of days later when her daughter found her slow to arouse. She was transported back to this facility admitted at that time. He was found to be hypoxic and required supplemental oxygen. Underlying condition was thought to be pulmonary fibrosis with possible COPD. She also had a coronary artery disease history and there was some troponin elevation at that time without chest pain. She had a cardiac evaluation and had a nuclear hide augmented stress test which was unremarkable for any reversible ischemia. She was discharged on supplemental oxygen to be followed up by pulmonology in [place] later this month. She is currently on supplemental oxygen at home at approximately 4 to 5 L/min. She uses an oxygen concentrator as well as a portable oxygen supply. She states she has been very orthodoxy about wearing her oxygen. She states she woke up this morning and did her normal activities of daily living to include taking her medicines drinking couple coffee and toileting. She then returned back to the chair and the next thing she recalls is that EMS was at her house. She currently states that she has no chest pain, no show no other constitutional symptoms. She has not been recently ill. She is states that she drinks 3-4 bottles of water a day in addition to her normal coffee etc. She states she has not had any vomiting or diarrhea decreased urinary output etc. MD complaint: decreased responsiveness Timing confirmed by: family member Associated symptoms: Reports no associated symptoms Review of Systems Const: Denies: fever(s) or chills Eyes: Denies: change in vision ENMT: Denies: throat pain, odynophagia, nasal discharge or nasal congestion Card: Reports: lightheadedness and dyspnea on exertion; Denies: chest pain, palpitations, syncope or pre-syncope Resp: Reports: dyspnea (Exertional); Denies: productive cough or non-productive cough GI: Denies: nausea, vomiting, hematemesis, diarrhea, hematochezia or melena : Denies: flank pain, difficulty voiding, dysuria or oliguria Musc: Denies: neck pain, back pain, extremity pain or extremity swelling Neuro: Denies: headache(s), numbness in extremities, weakness in extremities, Slurred speech present, difficulty communicating thoughts or seizure-like activity PFSH ED PFSH: Medical History Elevated troponin Pulmonary fibrosis Carotid stenosis, right COPD (chronic obstructive pulmonary disease) CAD (coronary artery disease) Lumbar pain with radiation down right leg Hyperlipidemia, mixed Essential hypertension Diabetes mellitus with hyperglycemia, without long-term current use of insulin History of heart attack 3 Surgical History History of ganglion cyst Left History of carotid endarterectomy Left at [facility] H/O dilation and curettage History of knee replacement both knees History of carpal tunnel surgery both History of back surgery History of hysterectomy Family History Mother Breast cancer Diabetes Father Hypertension Brother Hypertension Other TIA (transient ischemic attack) Social History Smoking and tobacco/nicotine status: former use of tobacco/nicotine Second hand smoke exposure: No Alcohol intake: never Substance/Drug Use: never Adopted: No Caregiver/support person: No Lives independently: Yes Household members: none Housing: House Marital status: / Number of children: 6 service: No Current occupational status: retired Pets and animals: Yes Pets & animals: dog(s) Do you think of yourself as: Straight/Heterosexual Current gender identity: Female Physical Exam Narrative: Elderly female who is alert makes good eye contact and answers questions fluently in a goal-directed fashion. She appears comfortable. Const: COMMON NORMALS: no acute distress, average body habitus, patient oriented x3, healthy appearing and alert EXAM LIMITATIONS: altered mental status GENERAL APPEARANCE: cooperative and comfortable HENMT: COMMON NORMALS: normocephalic, atraumatic, Normal nasal mucous membranes and turbinates present, moist oral mucous membranes and oropharynx normal HEAD & SCALP: normocephalic and atraumatic FACE & SINUS: face symmetric NOSE: Normal nasal mucous membranes and turbinates present Eye: COMMON NORMALS: Equal, round and reactive pupils present, EOMs intact bilaterally and conjunctivae normal CONJUNCTIVA: Yes conjunctivae normal PUPIL: Yes Equal, round and reactive pupils present Neck/C-Spine: COMMON NORMALS: full ROM, no lymphadenopathy, supple and no JVD OTHER: Surgical incision in the right anterior neck. Well-approximated without erythema drainage etc. Chest: COMMONS NORMALS: normal inspection of the chest Resp: COMMON NORMALS: normal respiratory effort, No retractions, No use of accessory muscles and clear to auscultation bilaterally AUSCULTATION: clear to auscultation bilaterally Cardio: COMMON NORMALS: no JVD, regular rate, regular rhythm, No murmurs present (Cardio) and Peripheral pulses 2+ throughout RATE: regular rate RHYTHM: regular rhythm PERIPHERAL PULSES: Peripheral pulses 2+ throughout GI: COMMON NORMALS: Normal to inspection, nondistended, normoactive bowel sounds present, Soft to palpation and non-tender PALPATION: Yes Soft to palpation : COMMON NORMALS: Yes no CVA tenderness BLADDER/KIDNEY EXAM: Yes no CVA tenderness Back/Pelvis: COMMON NORMALS: no CVA tenderness, no thoracic nor lumbar tenderness and thoraco-lumbar ROM normal Extremity: COMMON NORMALS: normal to inspection, full ROM, capillary refill normal, no calf tenderness and no pedal edema Neuro: SANDRINE COMA SCALE: document GCS findings Thompson coma scale eye opening: Spontaneous Sandrine coma scale verbal response: Orientated Thompson coma scale motor response: Obey commands Sandrine coma scale total score: 15 COMMON NORMALS: patient oriented x3, moves all extremities and no focal motor deficits SENSORIUM/ORIENTATION: Yes alert CRANIAL NERVES: Yes CN normal except as noted Psych: COMMON NORMALS: mental status grossly normal Skin: COMMON NORMALS: no rashes or lesions noted and turgor normal GENERAL SKIN EXAM: no rashes or lesions noted and turgor normal Course Reevaluation(s): Reevaluation #1: Orthostatic vital signs noted and appear to be reassuring at this point after IV fluids and further observation. Time: 15:01 Reevaluation #2: Discussed all findings and their implications and recommendation for plan of care with patient and family who are now present. Imaging, serial troponins, other laboratories are reassuring at this time. She has maintained her blood pressure after hydration in a very acceptable range and has remained alert communicative without any focal physical or neurologic findings. Certainly does not suggest that she is having depressed respiratory drive given the nature of her events and certainly does not sound like a POISING INSPECTOR related event to include seizures etc. She takes her antihypertensives lisinopril and amlodipine both at the same time and with her more recent change in her condition and this may be causing transient hypotension may be current contributing to her episodes. Do not have any other explainable etiologies at this time and she has remained stable. We discussed continued observation versus observation at home and she strongly prefers the latter and feels comfortable in that plan. Will have her divide her medications up taking the lisinopril in the morning and amlodipine at night. She has maintain her oxygen level on her prescribed supplemental oxygen at 90 to 93% while in the emergency department which is improved from that which she is said she has been doing normally at home. She is stable at this time to be discharged she has pulmonology follow-up and also return precautions discussed. Time: 15:18 Vital Signs: Vital signs: Vital Signs Temperature 97.6 F 05/11/24 10:19 Pulse Rate 77 05/11/24 14:29 Respiratory Rate 18 05/11/24 13:17 Blood Pressure 157/90 05/11/24 14:46 Pulse Oximetry 90 05/11/24 14:46 Oxygen Delivery Me thod Nasal Cannula 05/11/24 14:46 Oxygen Flow Rate 5 05/11/24 14:46 MDM - Altered Mental Status Medical Decision Making This patient returns to the emergency department because if she i had another episode of decreased responsiveness this morning. He has a history of having a similar occurrence that required hospitalization and extensive workup previously this month. There was no associated falls, seizures, syncope palpitations or other clinical symptoms associated with her presentation today. Clinical exam was unremarkable for any focal findings or any other stigmata of serious illness. Differential included potential hypoxia versus hypercarbia, versus occult seizure, versus syncope etc. In order to work through this differential imaging was obtained as well as serial troponins EKGs and other laboratories. Findings were reassuring in the her initial elevated troponin did not continue to elevate but dropped on her second troponin. Her BNP was consistent with prior BNP's and her chest x-ray was actually improved a head CT was obtained to ensure there was no occult intracranial hemorrhage midline shift etc. which was reassuring. She responded well to IV hydration with significant improvement in her blood pressures and her orthostatic blood pressures were also reassuring. Certainly does not suggest occult ACS, POISING INSPECTOR related, toxic metabolic, or other etiology at this time. I suspect that this may be related to transient hypotension given the presenting blood pressures that she came to the emergency department with and how well she responded to IV fluids and observation. We have elected to split her antihypertensives up to morning and evening dose to help mitigate against any hypotensive effects. We have also encouraged her to increase her fluid intake as she has diastolic failure not systolic failure as well as continue her usual oxygen. She was offered continued observation but she prefers to be discharged and she is being done so with family at this time. Medical Records I reviewed the patient's medical records. Discharge summary from last hospitalization in which she was discharged on nasal cannula. Lab Data I reviewed the patient's lab results. 05/11/24 10:20 05/11/24 10:20 Radiology Impressions Chest X-Ray 05/11/24 10:36 Impression: 1. Decrease in left basilar opacity which could present clearing of pneumonia and/or atelectasis. 2. Increase in right cardiophrenic angle opacities. 3. Atherosclerosis. Head CT 05/11/24 12:49 IMPRESSION: No acute intracranial hemorrhage or mass effect. Laboratory Results WBC 14.69 10^3/uL (3.29-11.43) H 05/11/24 10:20 RBC 4.70 10^6/uL (3.85-5.65) 05/11/24 10:20 Hgb 14.40 g/dL (11.27-16.99) 05/11/24 10:20 Hct 48.5 % (36-47) H 05/11/24 10:20 MCV 103.2 fl (85-98) H 05/11/24 10:20 MCH 30.6 pg (27-33) 05/11/24 10:20 MCHC 29.7 g/dL (30-55) L 05/11/24 10:20 RDW 13.9 % (12.1-15.1) 05/11/24 10:20 Plt Count 249 10^3/cmm (157-399) 05/11/24 10:20 MPV 10.9 fL (7.4-10.4) H 05/11/24 10:20 Neut % (Auto) 60.8 % 05/11/24 10:20 Lymph % (Auto) 25.9 % 05/11/24 10:20 [place] % (Auto) 9.7 % 05/11/24 10:20 Eos % (Auto) 2.0 % 05/11/24 10:20 Baso % (Auto) 0.4 % 05/11/24 10:20 Neut # (Auto) 8.95 10^3/uL (1.8-7.7) H 05/11/24 10:20 Lymph # (Auto) 3.8 10^3/uL (0.8-4.8) 05/11/24 10:20 [place] # (Auto) 1.4 10^3/uL (0.2-0.9) H 05/11/24 10:20 Eos # (Auto) 0.3 10^3/uL (0.0-0.8) 05/11/24 10:20 Baso # (Auto) 0.1 10^3/uL (0.0-0.1) 05/11/24 10:20 Nucleated RBC % (auto) 0 % 05/11/24 10:20 Nucleated RBCs # 0.0 /100WBC 05/11/24 10:20 Specimen Type Not specified 05/11/24 11:08 Sample Site Not specified 05/11/24 11:08 Syd Test N/a 05/11/24 11:08 VBG pH 7.37 (7.32-7.42) 05/11/24 11:08 VBG pCO2 51.4 mmHg (41-51) H 05/11/24 11:08 VBG pO2 30.9 mmHg (25-40) 05/11/24 11:08 VBG HCO3 29.6 mmol/L (24-28) H 05/11/24 11:08 VBG Base Excess 3.1 mmol/L (-3.0-3.0) H 05/11/24 11:08 VBG Hematocrit 47.1 % (37-47) H 05/11/24 11:08 O2 Delivery Device digital controls technical officer 05/11/24 11:08 FiO2 21.0 % 05/11/24 11:08 Pattern Chart Writer ID [email or web address] 05/11/24 11:08 Blood Gas Notified Time 1130 05/11/24 11:08 Sodium 139 mmol/L (136-145) 05/11/24 10:20 Potassium 4.7 mmol/L (3.5-5.1) 05/11/24 10:20 Chloride 102 mmol/L (98-107) 05/11/24 10:20 Carbon Dioxide 26 mmol/L (22-29) 05/11/24 10:20 Anion Gap 15.7 (5-19) 05/11/24 10:20 BUN 37 mg/dL (8-23) H 05/11/24 10:20 Creatinine 1.1 mg/dL (0.5-0.9) H 05/11/24 10:20 GFR Calculation Not Reportable 05/11/24 10:20 Glucose 96 mg/dL (65-115) 05/11/24 10:20 Calculated Osmolality 297 mOsm/kg (285-295) H 05/11/24 10:20 Calcium 9.1 mg/dL (8.5-10.5) 05/11/24 10:20 Magnesium 1.9 mg/dL (1.7-2.3) 05/11/24 10:20 Total Bilirubin 0.5 mg/dL (0.15-1.2) 05/11/24 10:20 AST 28 U/L (0-32) 05/11/24 10:20 ALT 24 U/L (0-33) 05/11/24 10:20 Alkaline Phosphatase 44 U/L (35-105) 05/11/24 10:20 Troponin T Baseline 95 ng/L (0-10) H 05/11/24 11:08 Troponin T 120 Minute 75.75 ng/L (0-10) H 05/11/24 14:09 Delta Troponin T -19.25 ABS# (0-10) L 05/11/24 14:09 NT-Pro-B Natriuret Pep 2343 pg/mL (0-450) H 05/11/24 10:20 Total Protein 5.7 g/dL (6.6-8.7) L 05/11/24 10:20 Albumin 3.5 g/dL (3.5-5.2) 05/11/24 10:20 Globulin 2.2 g/dL (1.3-4.6) 05/11/24 10:20 All radiology interpretation(s) finalized by discharge EKG Data EKG 1: I personally reviewed and interpreted this EKG as follows: Interpretation: Contemporaneous review of the resting EKG reveals ventricular rate of 59 bpm. Consistent with borderline sinus bradycardia. Normal NM interval, QRS duration, corrected QT interval. Leftward axis. She has ST changes which are nonspecific in nature and generally present on prior EKG tracings within the system. Discharge Plan Discharge Patient Disposition: Home Clinical Impression: Chronic hypoxemic respiratory failure, Pulmonary fibrosis, Hypotension due to drugs, Diastolic congestive heart failure Condition: Stable Prescriptions: No Action famotidine 20 mg tablet 20 mg PO BID Qty: 60 2RF fenofibrate 160 mg tablet 160 mg PO DAILY Qty: 30 2RF Trelegy Ellipta 100-62.5-25 mcg blister with device 1 inh inhalation Q24H Qty: 60 2RF gabapentin 300 mg capsule 300 mg PO TID Qty: 90 2RF lisinopril 10 mg tablet 10 mg PO DAILY Qty: 30 2RF metformin 1,000 mg tablet 1,000 mg PO DAILY Qty: 30 2RF tizanidine 4 mg tablet 4 mg PO BID PRN (Reason: muscle spasticity) Qty: 60 2RF hydrocodone-acetaminophen 5-325 mg Tablet 1 tab PO Q6H PRN (Reason: Moderate Pain) Qty: 12 0RF atorvastatin 80 mg tablet 80 mg PO QPM magnesium oxide 400 mg magnesium tablet 800 mg PO BEDTIME gabapentin 100 mg Capsule 100 mg PO TID 30 Days Qty: 90 0RF aspirin 325 mg tablet 325 mg PO QAM levothyroxine 25 mcg tablet 25 mcg PO QAM isosorbide mononitrate 60 mg tablet extended release 24 hr 120 mg PO QAM Discharge Orders: Discharge ED (Routine); Ordered 05/11/24 Ordered By: Harrison Smith Referrals: Paco Jo, [employer] [Primary Care Provider] - Discharge Diet: Usual diet Discharge Activity: Increase activity as tolerated, Use walker/crutches as instructed and Oxygen as instructed Patient Instructions: Altered Mental Status (ED), Opioid Safety, Pain Management Activity Restrictions/Additional Instructions: As we discussed during your evaluation in the emergency department we did not find any evidence of a serious condition. You obviously have chronic oxygen dependent lung disease as well as your chronic diastolic heart failure. We think that some of your symptoms may be related to low blood pressure and we recommend that you take either your l lisinopril in the morning and then your amlodipine at night. He should continue all your other medications and your supplemental oxygen as recommended. If you develop continued or worsening symptoms you are welcome to return to the emergency department anytime. Otherwise follow-up with your lung doctor as scheduled. Coding Level of Care Code ED Weigh Tank Operator for Edvin Aggarwal
--- NOTE | 2024-05-11 10:36 | XR_ITS ---
WS: [id number] Portable AP upright chest, 05/11/2024 Clinical Data: weakness Comparison: Portable chest, 05/04/2024 Findings: No nodules, masses or effusions are seen. The left lower lobe opacities have diminished. Th ere are minimal opacities at the right cardiophrenic angle. The heart is normal. The pulmonary vascul arity is not increased. No pneumonia or pneumothorax is seen. The aortic arch and descending thoracic aorta show tortuosity. There is a slight dextroscoliosis. Monitor leads are on the chest wall. There is osteoarthritis of both shoulders. There are surgical clips in the left neck. XR/XR chest 1V portable [id number] Impression: 1. Decrease in left basilar opacity which could present clearing of pneumonia a nd/or atelectasis. 2. Increase in right cardiophrenic angle opacities. 3. Atherosclerosis.
[2024-05-11 10:45] LABS: Basophils # 0.1 10^3/uL (0.0-0.1); Basophils % 0.4 %; Eosinophils # 0.3 10^3/uL (0.0-0.8); Hematocrit 48.5 % (36-47); Lymphocytes # 3.8 10^3/uL (0.8-4.8); Lymphocytes % 25.9 %; Mean Corpuscular HGB Conc 29.7 g/dL (30-55); Mean Corpuscular Hemoglobin 30.6 pg (27-33); Mean Corpuscular Volume 103.2 fl (85-98); Mean Platelet Volume 10.9 fL (7.4-10.4); Monocytes # 1.4 10^3/uL (0.2-0.9); Monocytes % 9.7 %; Neutrophils # 8.95 10^3/uL (1.8-7.7); Neutrophils % 60.8 %; Nucleated Red Blood Cells % 0 %; Platelet Count 249 10^3/cmm (157-399); Red Cell Distribution Width 13.9 % (12.1-15.1); White Blood Count 14.69 10^3/uL (3.29-11.43)
--- NOTE | 2024-05-11 10:46 | ECG_ITS ---
[facility] Test Date: 2024-05-11 Pat Name: Anabell Reina Department: Room: Gender: Female Textile Examiner: : 1945 Requested By: Harrison Smith Order Number: [id number] Tad MD: Srinivas Singletary M.D. Measurements Intervals [place] Rate: 59 P: 17 MN: 167 QRS: -35 QRSD: 89 T: -34 QT: 399 QTc: 398 Interpretive Statements SINUS BRADYCARDIA POSSIBLE LEFT ATRIAL ENLARGEMENT [-0.1mV P-WAVE IN V1/V2] LEFT AXIS DEVIATION [QRS AXIS < -30] PATTERN CONSISTENT WITH PULMONARY DISEASE POSSIBLE LEFT VENTRICULAR HYPERTROPHY [VOLTAGE CRITERIA PLUS LAE OR QRS WIDENING] MODERATE T-WAVE ABNORMALITY, CONSIDER ANTERIOR ISCHEMIA [-0.1+ mV T-WAVE IN V3/V4] Compared to ECG 05/04/2024 10:55:43 T-wave abnormality now present Possible ischemia now present Sinus rhythm no longer present Electronically Signed On 05-11-2024 17:11:38 CDT by Srinivas Singletary M.D. [id number]
--- NOTE | 2024-05-11 10:50 | PC.PHAR ---
PT RECENTLY FINISHED KEFLEX 500MG 05/03/24, LEVAQUIN 750MG 05/07/24, AND PREDNISONE 20 MG 05/07/24.
[2024-05-11] MEDS: lactated ringers 500 ML 999 ML IV (10:53)
[2024-05-11 11:08] LABS: Alanine Aminotransferase 24 U/L (0-33); Albumin Level 3.5 g/dL (3.5-5.2); Alkaline Phosphatase 44 U/L (35-105); Anion Gap 15.7 (5-19); Aspartate Amino Transferase 28 U/L (0-32); Blood Urea Nitrogen 37 mg/dL (8-23); Calcium 9.1 mg/dL (8.5-10.5); Carbon Dioxide 26 mmol/L (22-29); Chloride 102 mmol/L (98-107); Creatinine Clr Calc Pharmacy 35.8249; Globulin 2.2 g/dL (1.3-4.6); Glucose 96 mg/dL (65-115); Magnesium 1.9 mg/dL (1.7-2.3); NT Pro B Type Natriuretic Pept 2343 pg/mL (0-450); Osmolality Calculated 297 mOsm/kg (285-295); Potassium 4.7 mmol/L (3.5-5.1); Sodium 139 mmol/L (136-145); Total Bilirubin 0.5 mg/dL (0.15-1.2); Total Protein 5.7 g/dL (6.6-8.7)
[2024-05-11 11:22] LABS: Blood Gas Operator Identificat glc; Blood Gas Sample Site Not specified
[2024-05-11 11:27] LABS: Base Excess VBG 3.1 mmol/L (-3.0-3.0); Blood Gas Sample Type Not specified; HCO3 VBG 29.6 mmol/L (24-28); PCO2 VBG 51.4 mmHg (41-51); PO2 VBG 30.9 mmHg (25-40); Venous Blood Gas Hematocrit 47.1 % (37-47); pH VBG 7.37 (7.32-7.42)
[2024-05-11 11:31] LABS: Blood Gas CCRB Time 1130
[2024-05-11 11:39] LABS: Troponin(5th) Baseline 95 ng/L (0-10)
--- NOTE | 2024-05-11 12:46 | ECG_ITS ---
[facility] Test Date: 2024-05-11 Pat Name: Anabell Reina Department: Room: Gender: Female Project Construction Assistant Manager: : 1945 Requested By: Harrison Smith Order Number: [id number] Tad MD: Srinivas Singletary M.D. Measurements Intervals [place] Rate: 64 P: 25 NH: 178 QRS: -37 QRSD: 89 T: -29 QT: 385 QTc: 399 Interpretive Statements SINUS RHYTHM POSSIBLE LEFT ATRIAL ENLARGEMENT [-0.1mV P-WAVE IN V1/V2] LEFT AXIS DEVIATION [QRS AXIS < -30] PATTERN CONSISTENT WITH PULMONARY DISEASE POSSIBLE LEFT VENTRICULAR HYPERTROPHY [VOLTAGE CRITERIA PLUS LAE OR QRS WIDENING] MODERATE T-WAVE ABNORMALITY, CONSIDER ANTERIOR ISCHEMIA [-0.1+ mV T-WAVE IN V3/V4] Compared to ECG 05/11/2024 10:56:24 Sinus bradycardia no longer present T-wave abnormality still present Possible ischemia still present Electronically Signed On 05-11-2024 17:13:28 CDT by Srinivas Singletary M.D. [id number]
--- NOTE | 2024-05-11 12:49 | CTR_ITS ---
PROCEDURE INFORMATION: Exam: CT Head Without Contrast Exam date and time: 05/11/2024 1:08 PM Age: 78 years old Clinical indication: Syncope and collapse; episodes of altered mental status. Prior surgery; Surgery date: <1 month; Surgery type: RT carotid TECHNIQUE: Imaging protocol: Computed tomography of the head without contrast. Radiation optimization: All CT scans at this facility use at least one of these dose optimization techniques: automated exposure control; mA and/or kV adjustment per patient size (includes targeted exams where dose is matched to clinical indication); or iterative reconstruction. COMPARISON: CT angio headneck* 01/08/2024 RADIATION DOSE METRICS: Total DLP (mGy-cm): 1009.54 FINDINGS: Brain: No acute intracranial hemorrhage or abnormal intracranial mass effect is identified. Mild chronic appearing microvascular ischemic changes are seen in both cerebral hemispheres. There is mild generalized age-appropriate cerebral volume loss. There are no subdural collections. There are prominent atherosclerotic calcifications of the carotid siphons. Cerebral ventricles: Size within normal range for age. No midline shift. Paranasal sinuses: Visualized portions of paranasal sinuses are well aerated. Mastoid air cells: Visualized portions of mastoid sinuses are not opacified. Bones: Unremarkable. No acute fracture. Soft tissues: Other than as stated above, no obvious acute abnormality. CT/CT head wo con* [id number] IMPRESSION: No acute intracranial hemorrhage or mass effect.
[2024-05-11 14:34] LABS: Troponin 5 2HR 75.75 ng/L (0-10)
[2024-05-11 14:36] LABS: Troponin 5 2HR Delta -19.25 ABS# (0-10)
== END 2024-05-11 15:51 | disposition home or self-care (01) ==
PROVIDERS: Emergency Provider Emergency Medicine; PCP Nurse Practitioner
DX: J96.11 Chronic respiratory failure with hypoxia (principal); Z87.891 Personal history of nicotine dependence; R00.1 Bradycardia, unspecified; Z99.81 Dependence on supplemental oxygen; J84.10 Pulmonary fibrosis, unspecified; I95.2 Hypotension due to drugs; T46.4X5A Adverse effect of angiotensin-converting-enzyme inhibitors, initial encounter; T46.1X5A Adverse effect of calcium-channel blockers, initial encounter; I11.0 Hypertensive heart disease with heart failure; I50.30 Unspecified diastolic (congestive) heart failure
CPT/HCPCS: 36415; 70450; 71045; 80053; 82803; 83735; 83880; 84484; 85025; 93005; 96360; 99285; J7120

== ENCOUNTER → 2024-05-26 08:07 | Outpatient (BNVA) | payer MEDICARE, MEDICAID, SELFPAY | PROVIDERS: PCP Nurse Practitioner; Visit Provider Internal Medicine Critical Care Medicine | DX: J96.11 Chronic respiratory failure with hypoxia (principal); Z99.81 Dependence on supplemental oxygen; J84.9 Interstitial pulmonary disease, unspecified; J84.89 Other specified interstitial pulmonary diseases; J43.9 Emphysema, unspecified; J84.10 Pulmonary fibrosis, unspecified; K21.9 Gastro-esophageal reflux disease without esophagitis; K44.9 Diaphragmatic hernia without obstruction or gangrene | CPT/HCPCS: 99215 ==

== ENCOUNTER 2024-06-23 10:36 | Outpatient (CLI) | payer MEDICARE, MEDICAID, SELFPAY ==
[2024-06-23 11:23] LABS: Creatine Phosphokinase 94 U/L (26-192)
[2024-06-24 08:15] LABS: CENTROMERE B ANTIBODY <1.0 NEG AI (<1.0 NEG); JO-1 ANTIBODY <1.0 NEG AI (<1.0 NEG); JO-1 Antibody <1.0 NEG AI (<1.0 NEG); RNP ANTIBODY <1.0 NEG AI (<1.0 NEG); SCL 70 <1.0 NEG AI (<1.0 NEG); SCL-70 ANTIBODY <1.0 NEG AI (<1.0 NEG); SJOGREN'S ANTIBODY (SS-A) <1.0 NEG AI (<1.0 NEG); SM ANTIBODY <1.0 NEG AI (<1.0 NEG); SS A Ro Sjogrens Antibody <1.0 NEG AI (<1.0 NEG); SS-B <1.0 NEG AI (<1.0 NEG)
[2024-06-24 13:10] LABS: COMPLEMENT COMPONENT C3C 172 mg/dL (83-193); COMPLEMENT COMPONENT C4C 21 mg/dL (15-57)
[2024-06-24 13:35] LABS: COMPLEMENT, TOTAL (CH50) 48 U/mL (31-60)
[2024-06-24 16:24] LABS: Alternaria Alternata (M6) Ige <0.10 kU/L; Alternaria Class 0; Bermuda Class 0; Bermuda Grass (G2) Ige <0.10 kU/L; Cat Dander (E1) Ige <0.10 kU/L; Cat Dander Class 0; Common Ragweed (Short) (W1) Ig <0.10 kU/L; D. Farinae Class 0; Dermatophagoides Class 0; Dermatophagoides Farinae (D2) <0.10 kU/L; Dermatophagoides Pteronyssinus <0.10 kU/L; Dog Dander (E5) Ige <0.10 kU/L; Dog Dander Class 0; Elm (T8) Ige <0.10 kU/L; Elm Class 0; English Plantain (W9) Ige <0.10 kU/L; English Plantain Class 0; House Dust (Greer) (H1) Ige <0.10 kU/L; House Dust (Hollister- Stier) <0.10 kU/L; House Dust Class 0; Immunoglobulin E 51 kU/L (<OR=114); Johnson Grass (G10) Ige <0.10 kU/L; Johnson Grass Cl 0; June Grass Class 0; June Grass(Kentucky Blue) (G8) <0.10 kU/L; Lamb'S Quarters (Goose Foot) <0.10 kU/L; Lamb'S Quarters Class 0; Maple (Box Elder) (T1) Ige <0.10 kU/L; Maple Class 0; Meadow Fescue (G4) Ige <0.10 kU/L; Meadow Fescue Class 0; Mucor Racemosus Class 0; Oak (T7) Ige <0.10 kU/L; Oak Class 0; Orchard Grass (Cocksfoot) (G3) <0.10 kU/L; Penicillium Class 0; Penicillium Notatum (M1) Ige <0.10 kU/L; Perennial Rye Grass (G5) Ige <0.10 kU/L; Perennial Rye Grass Class 0; Ragweeed Class 0; Rough Marsh Elder (W16) Ige <0.10 kU/L; Rough Marsh Elder Class 0; Sweet Vernal Class 0; Sweet Vernal Grass (G1) Ige <0.10 kU/L; Timothy Grass (G6) Ige <0.10 kU/L; Timothy Grass Class 0
== END 2024-06-23 10:37 | disposition home or self-care (01) ==
PROVIDERS: PCP Nurse Practitioner; Visit Provider Internal Medicine Critical Care Medicine
DX: J96.11 Chronic respiratory failure with hypoxia (principal); Z99.81 Dependence on supplemental oxygen; J84.9 Interstitial pulmonary disease, unspecified; J84.89 Other specified interstitial pulmonary diseases; J43.9 Emphysema, unspecified; J84.10 Pulmonary fibrosis, unspecified; K21.9 Gastro-esophageal reflux disease without esophagitis
CPT/HCPCS: 36415; 82085; 82550; 82785; 86003; 86160; 86162; 86235; 86255; 86331; 86376; 86431; 86606; 86609

== ENCOUNTER 2024-07-05 09:48 | Outpatient (CLI) | payer MEDICARE, MEDICAID, SELFPAY | END 2024-07-05 09:49 | disposition home or self-care (01) | PROVIDERS: PCP Nurse Practitioner; Visit Provider Internal Medicine Critical Care Medicine | DX: J84.9 Interstitial pulmonary disease, unspecified (principal) | CPT/HCPCS: 94010; 94726; 94729 ==

== ENCOUNTER → 2024-07-07 10:47 | Outpatient (BNVA) | payer MEDICARE, MEDICAID, SELFPAY | PROVIDERS: PCP Nurse Practitioner; Visit Provider Internal Medicine Critical Care Medicine | DX: R76.8 Other specified abnormal immunological findings in serum (principal); J84.89 Other specified interstitial pulmonary diseases; J96.11 Chronic respiratory failure with hypoxia; Z99.81 Dependence on supplemental oxygen; J43.9 Emphysema, unspecified; J84.10 Pulmonary fibrosis, unspecified; K21.9 Gastro-esophageal reflux disease without esophagitis; K44.9 Diaphragmatic hernia without obstruction or gangrene; E27.8 Other specified disorders of adrenal gland | CPT/HCPCS: 99214 ==

== ENCOUNTER → 2024-08-03 10:37 | Outpatient (BNVA) | payer MEDICARE, MEDICAID, SELFPAY | PROVIDERS: PCP Nurse Practitioner; Visit Provider Nurse Practitioner | DX: E11.65 Type 2 diabetes mellitus with hyperglycemia (principal); E03.8 Other specified hypothyroidism | CPT/HCPCS: 80053; 83036; 84443; 85651; 86140 ==

== ENCOUNTER → 2024-11-14 12:29 | Outpatient (BNVA) | payer MEDICARE, MEDICAID, SELFPAY | PROVIDERS: PCP Nurse Practitioner; Visit Provider Nurse Practitioner | DX: E03.8 Other specified hypothyroidism (principal); E11.65 Type 2 diabetes mellitus with hyperglycemia | CPT/HCPCS: 80053; 80061; 82607; 83036; 84443 ==

== ENCOUNTER → 2024-12-06 11:15 | Outpatient (BNVA) | payer MEDICARE, MEDICAID, SELFPAY | PROVIDERS: PCP Nurse Practitioner; Visit Provider Internal Medicine Rheumatology | DX: J84.9 Interstitial pulmonary disease, unspecified (principal); Z79.899 Other long term (current) drug therapy | CPT/HCPCS: 36415; 83520; 85025; 86200 ==

== ENCOUNTER → 2024-12-19 15:53 | Outpatient (BNVA) | payer MEDICARE, MEDICAID, SELFPAY | PROVIDERS: PCP Nurse Practitioner; Visit Provider Internal Medicine Cardiovascular Disease | DX: I11.0 Hypertensive heart disease with heart failure (principal); I50.30 Unspecified diastolic (congestive) heart failure; I25.10 Atherosclerotic heart disease of native coronary artery without angina pectoris; E78.2 Mixed hyperlipidemia; E11.65 Type 2 diabetes mellitus with hyperglycemia; Z79.84 Long term (current) use of oral hypoglycemic drugs; J84.112 Idiopathic pulmonary fibrosis; Z87.891 Personal history of nicotine dependence; I25.2 Old myocardial infarction | CPT/HCPCS: 99214 ==

== ENCOUNTER 2024-12-26 07:40 | Outpatient (CLI) | payer MEDICARE, MEDICAID, SELFPAY ==
--- NOTE | 2024-12-26 08:00 | CT_ITS ---
WS: [id number] CT CHEST TECHNIQUE: Noncontrast CT of the chest with coronal and sagittal reformatted images. 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 DLP: 1129.[address] scans at [facility] use at least one of these dose optimization techniques: automated exposure control; mA and/or kV adjustment per patient size (includes targeted exams where dose is matched to clinical indication); or iterative reconstruction. FINDINGS: Chronic emphysematous changes. Chronic interstitial thickening. Slight traction bronchiectasis in the LEFT greater than RIGHT hilum. Subpleural honeycombing in the lung bases suspicious for IPF. Recommend pulmonology consultation. No other acute findings. Aortic calcification. Normal caliber thoracic aorta. Coronary calcification. Small esophageal hiatal hernia. Partially visualized LEFT renal cyst measuring 1.7 cm. Small splenule. Splenic artery calcification. Ankylosis thoracic spine. Mild thoracic curve. Stable 2 cm LEFT adrenal adenoma. CT/CT chest wo con [id number] IMPRESSION: 1. Chronic emphysematous changes. 2. Slight traction bronchiectasis in the LEFT greater than RIGHT hilum with holt bpleural honeycombing in the lung bases suspicious for IPF. Recommend pulmonolo gy consultation. 3. No other acute findings.
== END 2024-12-26 07:41 | disposition home or self-care (01) ==
LOC: RAD 07:41
PROVIDERS: PCP Nurse Practitioner; Visit Provider Internal Medicine Rheumatology
DX: J84.112 Idiopathic pulmonary fibrosis (principal); R93.89 Abnormal findings on diagnostic imaging of other specified body structures; J43.9 Emphysema, unspecified; J47.9 Bronchiectasis, uncomplicated; R91.8 Other nonspecific abnormal finding of lung field; I70.0 Atherosclerosis of aorta; I25.10 Atherosclerotic heart disease of native coronary artery without angina pectoris; K44.9 Diaphragmatic hernia without obstruction or gangrene; N28.1 Cyst of kidney, acquired; D73.89 Other diseases of spleen; I70.8 Atherosclerosis of other arteries; M43.24 Fusion of spine, thoracic region; M43.8X4 Other specified deforming dorsopathies, thoracic region; D35.02 Benign neoplasm of left adrenal gland
CPT/HCPCS: 71250

== ENCOUNTER 2024-12-27 10:54 | Outpatient (CLI) | payer MEDICARE, MEDICAID, SELFPAY | END 2024-12-27 10:55 | disposition home or self-care (01) | PROVIDERS: PCP Nurse Practitioner; Visit Provider Internal Medicine Rheumatology | DX: J84.112 Idiopathic pulmonary fibrosis (principal); R06.02 Shortness of breath; R93.89 Abnormal findings on diagnostic imaging of other specified body structures | CPT/HCPCS: 94010; 94726; 94729 ==

== ENCOUNTER 2025-02-22 10:12 | Outpatient (CLI) | payer OTHER, MEDICAID, SELFPAY ==
[2025-02-22 11:17] LABS: Estmated Average Glucose 134; Hemoglobin A1C 6.3 % (4.0-6.0)
[2025-02-22 11:34] LABS: Alanine Aminotransferase 16 U/L (0-33); Albumin Level 4.1 g/dL (3.5-5.2); Alkaline Phosphatase 49 U/L (35-105); Anion Gap 14.6 (5-19); Aspartate Amino Transferase 22 U/L (0-32); Blood Urea Nitrogen 18 mg/dL (8-23); Calcium 9.3 mg/dL (8.5-10.5); Carbon Dioxide 21 mmol/L (22-29); Chloride 111 mmol/L (98-107); Chol HDL Ratio 4.27 mg/dL (0.0-4.40); Cholesterol 141 mg/dL (0-200); Globulin 2.9 g/dL (1.3-4.6); Glucose 92 mg/dL (65-115); HDL Cholesterol 33 mg/dL (60-100); LDL Cholesterol Calculated 78 mg/dL (50-129); Osmolality Calculated 296 mOsm/kg (285-295); Potassium 4.6 mmol/L (3.5-5.1); Sodium 142 mmol/L (136-145); Thyroid Stimulating Hormone 2.37 uIU/mL (0.27-4.20); Total Bilirubin 0.4 mg/dL (0.15-1.2); Triglycerides 150 mg/dL (0-150); VLDL Cholestrol Calculation 30 mg/dL (0-30)
== END 2025-02-22 10:13 | disposition home or self-care (01) ==
PROVIDERS: PCP Nurse Practitioner; Visit Provider Nurse Practitioner
DX: E11.65 Type 2 diabetes mellitus with hyperglycemia (principal)
CPT/HCPCS: 36415; 80053; 80061; 83036; 84443

== ENCOUNTER → 2025-03-06 10:54 | Outpatient (BNVA) | payer OTHER, MEDICAID, SELFPAY | PROVIDERS: PCP Nurse Practitioner; Visit Provider Internal Medicine Rheumatology | DX: J84.112 Idiopathic pulmonary fibrosis (principal); Z79.899 Other long term (current) drug therapy; R76.8 Other specified abnormal immunological findings in serum; J96.91 Respiratory failure, unspecified with hypoxia | CPT/HCPCS: 36415; 80076; 82565; 85025; 85651; 86140; 86480; 99215 ==

== ENCOUNTER 2025-06-09 11:34 | Emergency (ER) | payer OTHER, MEDICAID, SELFPAY ==
[2025-06-09] VITALS (9 sets, daily range): BP systolic 80–188; BP diastolic 40–88; PULSE 81–97; RESP 16–24; TEMP 36.8; O2SAT 90–92
--- NOTE | 2025-06-09 11:40 | CT_ITS ---
WS: [id number] CT HEAD NONCONTRAST HISTORY: Symptoms of acute stroke, left-sided weakness. TECHNIQUE: Contiguous axial imaging performed through the brain. Bone and soft tissue windows. Sagittal and coronal reformats reviewed. All CT scans at [facility] use at least one of these dose optimization techniques: automated exposure control; mA and/or kV adjustment per patient size (includes targeted exams where dose is matched to clinical indication); or iterative reconstruction. DLP: 1066.78 mGy COMPARISON: 05/11/2024 No acute intracranial hemorrhage, midline shift or mass effect. Mild atrophy and small vessel disease. Prior RIGHT occipital lobe infarct. Moderate small vessel disease. Ventricles: Normal size with no hydrocephalus. No inferior displacement of the cerebellar tonsils. Paranasal sinuses: As visualized are clear. Mastoid air cells: Well pneumatized. Calvarium and scalp: Skull is intact with no soft tissue edema or swelling. CT/CT head thrombolytic [id number] IMPRESSION: 1. No acute intracranial hemorrhage or edema. 2. Mild cerebral and cerebellar atrophy and small vessel disease. 3. Remote RIGHT occipital lobe infarct. Notified Olivia Cohen MD at 06/09/2025 11:53 AM.
--- NOTE | 2025-06-09 11:40 | W.ED.NEUROSD ---
HPI - Neuro Symptoms/Deficit General: Chief Complaint: Neuro Symptoms/Deficit Stated Complaint: hypotensive - left sided facil droop Time Seen by Provider: 06/09/25 11:39 History of Present Illness: 80-year-old female with a history of a previous stroke with a visual field deficit and initially with some left-sided weakness that has since improved, pulmonary fibrosis/COPD and chronic hypoxemic respiratory failure on 4 L nasal cannula at all times, diabetes, obesity, coronary artery disease who presents emergency room by ambulance from home with neurologic symptoms. She says she was fine at about 10 AM and had been cleaning the house when this suddenly started. She has weakness on her left side that was similar to her old stroke. No slurred speech. No altered mental status. No facial droop. EMS reports that she was hypotensive on presentation. Blood pressure in the 80s. Related Data Home Medications ?Medication ?Instructions ?Recorded ?Confirmed aspirin 325 mg tablet 325 mg PO QAM 05/11/24 05/31/25 magnesium oxide 400 mg PO BEDTIME 08/03/24 05/31/25 Previous Rx's ?Medication ?Instructions ?Recorded [id number]-dxgpapcmvwukq-TB 1 5 ml PO .2 times day PRN allergy 08/03/24 mg-2.5 mg-5 mg/5 mL oral solution symptoms #118 mL (Dimetapp DM Cold-Cough (PE)) Inogen #1 ea 08/23/24 atorvastatin 80 mg tablet 80 mg PO QPM #30 tabs 03/27/25 folic acid 1 mg tablet 1 mg PO DAILY #30 tabs 04/03/25 methotrexate sodium 2.5 mg tablet 15 mg (6 x 2.5 mg) PO .q7day #30 04/03/25 tabs mycophenolate mofetil 500 mg 500 mg PO BID #30 tabs 04/03/25 tablet (CellCept) fluticasone fur. 100 mcg-umeclid 1 inh inhalation Q24H #60 ea 04/14/25 62.5 mcg-vilant 25 mcg inhalat.powder (Trelegy Ellipta) fenofibrate 160 mg tablet 160 mg PO DAILY #30 tabs 05/01/25 gabapentin 300 mg capsule 300 mg PO TID #90 caps 05/01/25 levothyroxine 25 mcg tablet 25 mcg PO QAM #30 tabs 06/30/25 lisinopril 30 mg tablet 30 mg PO .in PM #30 tabs 05/01/25 metformin 1,000 mg tablet 1,000 mg PO DAILY #30 tabs 05/01/25 prednisone 10 mg tablet See Rx Instructions PO .COMPLEX 05/01/25 PRN joint pain #30 tabs tizanidine 4 mg tablet 4 mg PO BID PRN muscle spasticity 05/01/25 #60 tabs triamcinolone acetonide 0.1 % 1 applic topical BID #60 mL 05/01/25 lotion famotidine 20 mg tablet 20 mg PO BID #60 tabs 06/03/25 isosorbide mononitrate 60 mg 120 mg (2 x 60 mg) PO QAM #60 tabs 06/03/25 tablet,extended release 24 hr Allergies Allergy/AdvReac Type Severity Reaction Status Date / Time clopidogrel (From Plavix) Allergy Intermediate rash Verified 05/31/25 15:15 Review of Systems Narrative: Constitutional symptoms: Negative except as documented in HPI. Skin symptoms: Negative except as documented in HPI. Eye symptoms: Negative except as documented in HPI. ENMT symptoms: Negative except as documented in HPI. Respiratory symptoms: Negative except as documented in HPI. Cardiovascular symptoms: Negative except as documented in HPI. Gastrointestinal symptoms: Negative except as documented in HPI. Genitourinary symptoms: Negative except as documented in HPI. Musculoskeletal symptoms: Negative except as documented in HPI. Neurologic symptoms: Negative except as documented in HPI. Psychiatric symptoms: Negative except as documented in HPI. Endocrine symptoms: Negative except as documented in HPI. PFSH ED PFSH: Medical History (Updated 06/09/25 @ 17:10 by Olivia Cohen MD) High risk medication use Hypoxic respiratory failure Positive antinuclear antibody IPF (idiopathic pulmonary fibrosis) Elevated troponin Pulmonary fibrosis Carotid stenosis, right COPD (chronic obstructive pulmonary disease) CAD (coronary artery disease) Lumbar pain with radiation down right leg Hyperlipidemia, mixed Essential hypertension Diabetes mellitus with hyperglycemia, without long-term current use of insulin History of heart attack 3 Surgical History History of ganglion cyst Left History of carotid endarterectomy Left at [facility] H/O dilation and curettage History of knee replacement both knees History of carpal tunnel surgery both History of back surgery History of hysterectomy Family History Mother Breast cancer Diabetes Father Hypertension Brother Hypertension Other TIA (transient ischemic attack) Social History Smoking and tobacco/nicotine status: former use of tobacco/nicotine Quit status (tobacco/nicotine): has quit using Year quit tobacco: 1998 Former quit date comment: 0.5 ppd X 30 Second hand smoke exposure: No Alcohol intake: never Substance/Drug Use: never Adopted: No Caregiver/support person: No Lives independently: Yes Household members: none Housing: House Marital status: / Number of children: 6 service: No Current occupational status: retired Pets and animals: Yes Pets & animals: dog(s) Do you think of yourself as: Straight/Heterosexual Current gender identity: Female Physical Exam Narrative: EXAM NARRATIVE: General: Alert, no acute distress. Skin: Warm, dry. Head: Normocephalic, atraumatic. Neck: Supple, trachea midline. Eye: Extraocular movements are intact. Ears, nose, mouth and throat: mucosa moist. Cardiovascular: Regular, Normal peripheral perfusion. Respiratory: Lungs are clear to auscultation, respirations are non-labored, breath sounds are equal, Symmetrical chest wall expansion. Gastrointestinal: Soft, Nontender, Non distended Musculoskeletal: Normal ROM, no deformity. Neurological: Alert and oriented, patient initially had quite a bit of trouble lifting up her left leg and arm. However when Dr. Blunt went in shortly after she was able to lift and hold both the leg and arm. Not on the right. No facial droop. No slurred speech. Psychiatric: Cooperative, appropriate mood & affect. Patient has bounding pulses on the left with diminished pulses on the right radial arteries. Blood pressure is in the 80s on the right and around 160 on the left. Course Vital Signs: Vital signs: Vital Signs Temperature 98.2 F 06/09/25 11:41 Pulse Rate 88 06/09/25 16:36 Respiratory Rate 16 06/09/25 16:36 Blood Pressure 188/85 06/09/25 16:36 Pulse Oximetry 91 06/09/25 16:36 Oxygen Delivery Me thod Nasal Cannula 06/09/25 16:36 Oxygen Flow Rate 6 06/09/25 16:36 MDM - Neuro Symptoms/Deficit Medical Decision Making Medical decision making: Differential diagnosis for patient with focal neurologic deficit(s) includes but not limited to and based on the above HPI, review of systems and physical exam: ischemic stroke, hemorrhagic stroke and embolic stroke secondary to atrial fibrillation), TIA, Guerra's palsey, metabolic encephalopathy with previous stroke. Orders placed to evaluate differential diagnosis based on the above differential, HPI and physical exam NIH Stroke Scale/Score (NIHSS) from [employer] on 06/09/2025. From my exam done at admission at around 11:40 AM. Last known well time 10 AM. All calculations should be rechecked by clinician prior to use RESULT SUMMARY: 4 points NIH Stroke Scale INPUTS: 1A: Level of consciousness ?> 0 = Alert; keenly responsive 1B: Ask month and age ?> 0 = Both questions right 1C: 'Blink eyes' & 'squeeze hands' ?> 0 = Performs both tasks 2: Horizontal extraocular movements ?> 0 = Normal 3: Visual maya ?> 0 = No visual loss 4: Facial palsy ?> 0 = Normal symmetry 5A: Left arm motor drift ?> 2 = Some effort against gravity 5B: Right arm motor drift ?> 0 = No drift for 10 seconds 6A: Left leg motor drift ?> 2 = Some effort against gravity 6B: Right leg motor drift ?> 0 = No drift for 5 seconds 7: Limb Ataxia ?> 0 = No ataxia 8: Sensation ?> 0 = Normal; no sensory loss 9: Language/aphasia ?> 0 = Normal; no aphasia 10: Dysarthria ?> 0 = Normal 11: Extinction/inattention ?> 0 = No abnormality Consultation: Dr. Blunt with neurology evaluated the patient around 1145 just briefly after the patient was admitted and just after she had her CT scan. CT head: Old right occipital encephalomalacia. No acute intracranial process. no intracranial hemorrhage, no evidence of infarct. no evidence of acute fracture.This was reviewed and interpreted by myself the ER physician. EKG: Time 1310. Rate 97. Normal sinus rhythm, nonspecific ST depression, no ectopy, normal ID & QRS intervals, This was reviewed and interpreted by myself the ER physician at 1315. Lab Review: Laboratory results were reviewed and interpreted by myself the emergency room physician. No leukocytosis. No anemia. Slight worsening of her renal function with a BUN/creatinine of 19 and 1.1. Lactate is elevated at 2.7. Urinalysis is positive for infection. Nitrate positive. Leukocyte esterase positive. 51-100 WBCs. 4+ bacteria. CTA chest head neck: This was reviewed and interpreted by myself the emergency room physician. I also reviewed the radiology report. 1. Intraluminal thrombus in the RIGHT brachiocephalic (innominate artery) causing greater than 70% occlusion. Thrombus measures 1.8 x 0.6 cm. 2. Poorly visualized RIGHT axillary artery. Recommend ultrasound evaluation of the RIGHT upper extremity arterial system to evaluate for thrombus. Venous injection was performed on the RIGHT which is partially obscuring the arterial system. 3. Suspect prior endarterectomy involving the RIGHT ICA. There is less plaque identified than on the prior exam. 4. RIGHT ICA stenosis 50 to 60% with intimal thickening. Small ulceration in the distal RIGHT common carotid artery. 5. Decreased enhancement of the distal RIGHT ICA as compared to the LEFT. Suggesting flow-limiting stenoses more proximally. Thrombus would be difficult to exclude in the distal RIGHT ICA due to the adjacent plaque and artifact. 6. Prior LEFT carotid endarterectomy. No high-grade stenosis. 7. Severe emphysema at the lung apices. 8. No thrombus or occlusion is identified in the middle cerebral arteries. I reviewed the patient's medical record. 80-year-old female with a history of a previous stroke with a visual field deficit and initially with some left-sided weakness that has since improved, pulmonary fibrosis/COPD and chronic hypoxemic respiratory failure on 4 L nasal cannula at all times, diabetes, obesity, coronary artery disease. She has carotid artery disease and has had bilateral carotid endarterectomies. Reexamination: Patient can now move extremities equally. However she does have diminished arterial pulses in her right arm with lower blood pressure in the 80s on that arm versus 120s to 160s in the left arm. No slurred speech. No focal motor deficits at this point. Discussed findings. She is never know anything about having a clot in her arm. Consultation: I spoke with vascular surgery on-call at [facility] in [place]. They agree that the heparin drip should be continued and that the patient should be admitted to the hospital as there and he will evaluate to see if intervention is needed. Does not seem to be emergent. Consultation: I spoke with the hospitalist [facility] who accepts the patient to their service. Dr. Cox. Assessment and plan: TIA Carotid stenosis Brachiocephalic artery clot History of stroke ?2 L normal saline and IV cefepime. Patient has UTI. Initially thought she was hypotensive but this is actually secondary to arterial clot in her proximal right arm. ?Heparin drip initiated. With bolus. -I discussed the patient with the accepting PRODUCT DEVELOPMENT TECHNICIAN on-call. - Discussed findings and plan with patient. Answered any questions. - All laboratory values were reviewed and interpreted personally by myself, the ER physician - All imaging was reviewed and interpreted personally by myself, the ER physician. - Evaluation and treatment of this problem were appropriate in the emergency setting Critical Care: -I spent a total of >90 minutes of critical care time managing the patient, independent of any other practitioner. -The time involved in the performance of separately reportable procedures was not counted towards critical care time. Lab Data 06/09/25 11:40 06/09/25 11:[address] 06/09/25 11:40 IMPRESSION: 1. No acute intracranial hemorrhage or edema. 2. Mild cerebral and cerebellar atrophy and small vessel disease. 3. Remote RIGHT occipital lobe infarct. Notified Olivia Cohen MD at 06/09/2025 11:53 AM. Head/Neck CTA 06/09/25 11:57 IMPRESSION: 1. Intraluminal thrombus in the RIGHT brachiocephalic (innominate artery) causing greater than 70% occlusion. Thrombus measures 1.8 x 0.6 cm. 2. Poorly visualized RIGHT axillary artery. Recommend ultrasound evaluation of the RIGHT upper extremity arterial system to evaluate for thrombus. Venous injection was performed on the RIGHT which is partially obscuring the arterial system. 3. Suspect prior endarterectomy involving the RIGHT ICA. There is less plaque identified than on the prior exam. 4. RIGHT ICA stenosis 50 to 60% with intimal thickening. Small ulceration in the distal RIGHT common carotid artery. 5. Decreased enhancement of the distal RIGHT ICA as compared to the LEFT. Suggesting flow-limiting stenoses more proximally. Thrombus would be difficult to exclude in the distal RIGHT ICA due to the adjacent plaque and artifact. 6. Prior LEFT carotid endarterectomy. No high-grade stenosis. 7. Severe emphysema at the lung apices. 8. No thrombus or occlusion is identified in the middle cerebral arteries. 9. Notified Olivia Cohen MD at 06/09/2025 1:41 PM. Laboratory Results WBC 7.56 10^3/uL (3.29-11.43) 06/09/25 11:40 RBC 4.55 10^6/uL (3.85-5.65) 06/09/25 11:40 Hgb 14.10 g/dL (11.27-16.99) 06/09/25 11:40 Hct 43.9 % (36-47) 06/09/25 11:40 MCV 96.5 fl (85-98) 06/09/25 11:40 MCH 31.0 pg (27-33) 06/09/25 11:40 MCHC 32.1 g/dL (30-55) 06/09/25 11:40 RDW 16.3 % (12.1-15.1) H 06/09/25 11:40 Plt Count 236 10^3/cmm (157-399) 06/09/25 11:40 MPV 10.0 fL (7.4-10.4) 06/09/25 11:40 Neut % (Auto) 65.0 % 06/09/25 11:40 Lymph % (Auto) 22.9 % 06/09/25 11:40 [place] % (Auto) 7.0 % 06/09/25 11:40 Eos % (Auto) 3.8 % 06/09/25 11:40 Baso % (Auto) 0.8 % 06/09/25 11:40 Neut # (Auto) 4.91 10^3/uL (1.8-7.7) 06/09/25 11:40 Lymph # (Auto) 1.7 10^3/uL (0.8-4.8) 06/09/25 11:40 [place] # (Auto) 0.5 10^3/uL (0.2-0.9) 06/09/25 11:40 Eos # (Auto) 0.3 10^3/uL (0.0-0.8) 06/09/25 11:40 Baso # (Auto) 0.1 10^3/uL (0.0-0.1) 06/09/25 11:40 Nucleated RBC % (auto) 0 % 06/09/25 11:40 Nucleated RBCs # 0.0 /100WBC 06/09/25 11:40 PT 13.60 SECONDS (12.1-14.9) 06/09/25 11:40 INR 0.97 (0.8-1.2) 06/09/25 11:40 APTT 24.2 SECONDS (23.9-36.7) 06/09/25 11:40 Specimen Type Arterial 06/09/25 12:59 Sample Site Radial, right 06/09/25 12:59 ABG pH 7.34 (7.35-7.45) L 06/09/25 12:59 ABG pCO2 39.2 mmHg (35-45) 06/09/25 12:59 ABG pO2 59.3 mmHg (80.0-100.0) L 06/09/25 12:59 ABG PO2/FiO2 Ratio 131 06/09/25 12:59 ABG HCO3 21.0 mmol/L (22-26) L 06/09/25 12:59 ABG O2 Saturation 89.3 06/09/25 12:59 ABG Base Excess -4.4 mmol/L (-2.0-2.0) L 06/09/25 12:59 Syd Test Pos 06/09/25 12:59 A-a O2 Gradient 27.7 mmHg (5-10) H 06/09/25 12:59 Hematocrit 43.1 % (37-47) 06/09/25 12:59 Hgb O2 Saturation 87.8 % (95-100) L 06/09/25 12:59 Carboxyhemoglobin 0.9 %THgb (0.4-20.1) 06/09/25 12:59 Methemoglobin 0.9 % (0.4-1.5) 06/09/25 12:59 Total Hemoglobin 14.1 g/dL (12-16) 06/09/25 12:59 Sodium 141.0 mmol/L (131-143) 06/09/25 12:59 Potassium 4.3 mmol/L (3.5-5.0) 06/09/25 12:59 Glucose 79.0 mg/dL (70-115) 06/09/25 12:59 Ionized Calcium 1.2 mmol/L (1.1-1.4) 06/09/25 12:59 O2 Delivery Device Nc 06/09/25 12:59 O2 Liters/Min 6.0 % 06/09/25 12:59 FiO2 45.0 % 06/09/25 12:59 Radiology Teacher ID glc 06/09/25 12:59 Sodium 142 mmol/L (136-145) 06/09/25 11:40 Potassium 4.9 mmol/L (3.5-5.1) 06/09/25 11:40 Chloride 106 mmol/L (98-107) 06/09/25 11:40 Carbon Dioxide 23 mmol/L (22-29) 06/09/25 11:40 Anion Gap 17.9 (5-19) 06/09/25 11:40 BUN 19 mg/dL (8-23) 06/09/25 11:40 Creatinine 1.1 mg/dL (0.5-0.9) H 06/09/25 11:40 GFR Calculation Not Reportable 06/09/25 11:40 Glucose 119 mg/dL (65-115) H 06/09/25 11:40 POC Glucose 109 mg/dL (70-110) 06/09/25 11:39 Calculated Osmolality 297 mOsm/kg (285-295) H 06/09/25 11:40 Lactic Acid 2.7 mmol/L (0.5-2.2) H 06/09/25 11:40 Lactic Acid (Sepsis) 1.3 mmol/L (0.5-2.2) 06/09/25 14:50 Calcium 9.6 mg/dL (8.5-10.5) 06/09/25 11:40 Total Bilirubin 0.6 mg/dL (0.15-1.2) 06/09/25 11:40 AST 23 U/L (0-32) 06/09/25 11:40 ALT 15 U/L (0-33) 06/09/25 11:40 Alkaline Phosphatase 43 U/L (35-105) 06/09/25 11:40 C-Reactive Protein 7.0 mg/L (0.0-4.9) H 06/09/25 11:40 NT-Pro-B Natriuret Pep 450 pg/mL (0-450) 06/09/25 11:40 Total Protein 7.2 g/dL (6.6-8.7) 06/09/25 11:40 Albumin 3.9 g/dL (3.5-5.2) 06/09/25 11:40 Globulin 3.3 g/dL (1.3-4.6) 06/09/25 11:40 Urine Color Yellow (Yellow) 06/09/25 12:08 Urine Appearance Cloudy (CLEAR) A 06/09/25 12:08 Urine pH 5.0 (5-7) 06/09/25 12:08 Ur Specific Wiggins 1.020 (1.005-1.030) 06/09/25 12:08 Urine Protein 2+ (Negative) A 06/09/25 12:08 Urine Glucose (UA) Negative (Normal) 06/09/25 12:08 Urine Ketones Trace (Negative) 06/09/25 12:08 Urine Blood 2+ (Negative) A 06/09/25 12:08 Urine Nitrate Positive (Negative) A 06/09/25 12:08 Urine Bilirubin Negative (Negative) 06/09/25 12:08 Urine Urobilinogen 1.0 mg/dL (Negative) 06/09/25 12:08 Ur Leukocyte Esterase 2+ (Negative) A 06/09/25 12:08 Urine RBC 6-10 /hpf (0-2) 06/09/25 12:08 Urine WBC 51-100 /hpf (0-5) H 06/09/25 12:08 Ur Squamous Epith Cells 6-10 /hpf (0-5) 06/09/25 12:08 Amorphous Sediment Not Reportable 06/09/25 12:08 Urine Bacteria 4+ /hpf (NONE) H 06/09/25 12:08 Hyaline Casts 34.33 /lpf 06/09/25 12:08 Urine Opiates Screen Negative ng/mL (Negative) 06/09/25 12:08 Ur Barbiturates Screen Negative ng/mL (Negative) 06/09/25 12:08 Ur Phencyclidine Scrn Negative ng/mL (Negative) 06/09/25 12:08 Ur Amphetamines Screen Negative ng/mL (Negative) 06/09/25 12:08 U Benzodiazepines Scrn Negative ng/mL (Negative) 06/09/25 12:08 Urine Cocaine Screen Negative ng/mL (Negative) 06/09/25 12:08 U Marijuana (THC) Screen Negative ng/mL (Negative) 06/09/25 12:08 All radiology interpretation(s) finalized by discharge Discharge Plan Discharge Patient Disposition: Xfer Short-Term Hosp Clinical Impression: Transient ischemic attack, Urinary tract infection, Arterial occlusion, History of cardioembolic cerebrovascular accident (CVA) Condition: Stable Referrals: Paco Jo FNP-C [Primary Care Provider, Family Practice] Print Language: Irish Coding Level of Care Code ED It Lead for Edvin Aggarwal
--- OUTSIDE RECORDS SUMMARY | 2025-06-09 11:42 | XMS_ITS | Clinical Summary ---
Author Organization [facility] Administrative Offices Address [address] [place] [address] Care Team Providers Care Lap Cutter Name Role Phone Unavailable Primary Care Provider Unavailabl e Encounters Date Type Department Care Team Description 05/17/2025 External Device Data [facility] ABSTRACTION Provider, Abstract 05/17/2025 External Device Data [facility]CTION Provider, Abstract 05/17/2025 External Device Data [facility]STRACTION Provider, Abstract 05/16/2025 External Device Data [facility]CTION Provider, Abstract 04/19/2025 External Device Data [facility]STRACTION Provider, Abstract 04/18/2025 External Device Data [facility]STRACTION Provider, Abstract 03/23/2025 External Device Data [facility]CTION Provider, Abstract 03/22/2025 External Device Data [facility]STRACTION Provider, Abstract 03/21/2025 External Device Data [facility] ABSTRACTION Provider, Abstract from Last 3 Months Immunizations Immunization Administration Dates Next Due Influenza Seasonal Unspecified Formulation IM Social History Tobacco Use Types Packs/Day Years Used Date Smoking Tobacco: Never Assessed Comments Unknown Sex and Gender Information Value Date Recorded Sex Assigned at Not on file 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
[2025-06-09 11:46] LABS: Hematocrit 43.9 % (36-47); Hemoglobin 14.10 g/dL (11.27-16.99); Mean Corpuscular HGB Conc 32.1 g/dL (30-55); Mean Corpuscular Hemoglobin 31.0 pg (27-33); Mean Corpuscular Volume 96.5 fl (85-98); Nucleated Red Blood Cells % 0 %; Platelet Count 236 10^3/cmm (157-399); Red Blood Count 4.55 10^6/uL (3.85-5.65); White Blood Count 7.56 10^3/uL (3.29-11.43)
--- NOTE | 2025-06-09 11:55 | PC.NURSE ---
PATIENT NOT IMMEDIATELY TAKEN TO CT DUE TO PATIENT VITALS UPON ARRIVAL. PATIENT ON 6 L NC AND BP 80S/40S. LESS THAN [address] TO ENSURE PATIENT STABLE TO TRANSPORT TO CT AND BACK.
--- NOTE | 2025-06-09 11:57 | CT_ITS ---
WS: [id number] CT ANGIOGRAM CEREBRAL AND CAROTID ARTERIES HISTORY: Possible stroke TECHNIQUE: CT angiogram is performed of the carotid and cerebral arteries. During arterial injection imaging is obtained from the skull vertex to the aortic arch in 1.25 mm imaging. Coronal and sagittal reformats are submitted. Additional multi planar reformats of the carotid and cerebral arteries are submitted, MIP imaging also reviewed. NASCET criteria utilized. All CT scans at [facility] use at least one of these dose optimization techniques: automated exposure control; mA and/or kV adjustment per patient size (includes targeted exams where dose is matched to clinical indication); or iterative reconstruction. CONTRAST: Omnipaque 350; 100 mL IV. DLP: 473.58 mGy COMPARISON: 01/08/2024 Carotid Angiogram: Right carotid: Common carotid artery: Diffuse intimal thickening common carotid artery. Focal ulcerated plaque distal common carotid artery. Internal carotid artery: 50 to 60% stenosis of the proximal RIGHT ICA. Calcification previously described has been removed. Suspect prior endarterectomy although that history has not been provided. External carotid artery is small caliber but patent. External carotid artery: Small caliber but patent. Left carotid: Common carotid artery: Calcification at the origin from the arch. No complete occlusion. Internal carotid artery: Status post endarterectomy. Intimal thickening and a small amount of calcified plaque and tortuosity. No high-grade stenosis. External carotid artery: Patent. Similar appearance of the LEFT external carotid artery as on 01/08/2024. Right vertebral artery: Mild stenosis origin of the RIGHT vertebral artery. Left vertebral artery: Unremarkable. Arises normally from the subclavian artery. Subclavian arteries: RIGHT subclavian artery is poorly visualized. In part this is due to the contrast bolus through the RIGHT upper extremity. Poor visualization through the RIGHT axillary artery. Also noted is intraluminal thrombus in the innominate artery extending over a length of at least 1.8 cm x 0.6 cm. Upper thorax: Severe emphysema at the lung apices. Atherosclerotic calcifications within the aorta. Visualized pulmonary artery is negative. Bilateral thyroid nodules. Osseous structures: Advanced degenerative changes. CEREBRAL ANGIOGRAM: Intracranial vertebral arteries: Normal with no significant atherosclerosis. Basilar artery: No significant stenosis or occlusion. No aneurysm. Intracranial Internal carotid arteries: There is mild decreased enhancement of the RIGHT intracranial carotid artery as compared to the LEFT suggesting there is a flow-limiting stenosis more proximally. Moderate plaque to the carotid cavernous sinuses. Middle cerebral arteries: Normal. Anterior cerebral arteries and ACOM: Normal. Posterior cerebral arteries and PCOM's: Normal. Dural venous sinuses are normally enhancing. CT/CT angio headneck* [id number] IMPRESSION: 1. 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 Thrombus measures 1.8 x 0.6 cm. 2. Poorly visualized RIGHT axillary artery. Recommend ultrasound evaluation of the RIGHT upper extremity arterial system to evaluate for thrombus. Venous inj ection was performed on the RIGHT which is partially obscuring the arterial sys tem. 3. Suspect prior endarterectomy involving the RIGHT ICA. There is less plaque identified than on the prior exam. 4. RIGHT ICA stenosis 50 to 60% with intimal thickening. Small ulceration in t he distal RIGHT common carotid artery. 5. Decreased enhancement of the distal RIGHT ICA as compared to the LEFT. Sugg esting flow-limiting stenoses more proximally. Thrombus would be difficult to e xclude in the distal RIGHT ICA due to the adjacent plaque and artifact. 6. Prior LEFT carotid endarterectomy. No high-grade stenosis. 7. Severe emphysema at the lung apices. 8. No thrombus or occlusion is identified in the middle cerebral arteries. 9. Notified Olivia Cohen MD at 06/09/2025 1:41 PM.
[2025-06-09 11:58] LABS: INR 0.97 (0.8-1.2); Partial Thromboplastin Time 24.2 SECONDS (23.9-36.7); Prothrombin Time 13.60 SECONDS (12.1-14.9)
[2025-06-09 12:07] LABS: Lactic Sepsis W/Reflex 2.7 mmol/L (0.5-2.2)
--- NOTE | 2025-06-09 12:08 | PM.CONSULT ---
Providers/Reason For Consult Consulting Physician/Specialty*: Corey Blunt MD neurology and epilepsy Reason for Consult*: Stroke alert emergency department room #6 Primary Care Provider: ANNALISA Blanchard History of Present Illness History of Present Illness Anabell Reina is a 80 year old female with a history of right cerebral infarction with left-sided weakness which patient reports occurred years ago and has improved. Patient also has a history of bilateral carotid endarterectomies in the past. The patient stated that on 06/09/2025 she was cleaning up around her home around 10 AM. Patient stated that she began experiencing trouble with left upper extremity weakness and some speech difficulty. Stroke alert was initiated at 11:30 AM with ETA 5 minutes from [facility] emergency department. NIH stroke score =1 (mild dysarthria). Point of contact glucose Accu-Chek 109 Stat noncontrast thrombolytic head CT revealed mild cerebral and cerebellar atrophy and small vessel disease. Remote RIGHT occipital lobe infarct. Since the patient's NIH stroke score =1 the patient was not a candidate for intravenous thrombolytics and no intravenous thrombolytics were administered. There was reports of significant asymmetric blood pressures in the left versus right arm and patient complaining of uncomfortable sensation in her chest. Recommend patient undergo CT angiogram of head and neck and CT of chest to assess for any abnormal cardiac issues. Drug allergies: Plavix which resulted in a rash Current medications: Aspirin 325 mg p.o. every morning Lipitor 80 mg p.o. nightly Pepcid 20 mg p.o. twice daily Fenofibrate 160 mg p.o. daily Folic acid 1 mg p.o. daily Neurontin 300 mg p.o. 3 times daily Isosorbide mononitrate XR 120 mg p.o. daily Synthroid 25 mcg p.o. daily Lisinopril 30 mg p.o. daily Magnesium oxide 400 mg p.o. nightly Metformin 1000 mg p.o. daily Methotrexate 15 mg every 7 days Mycophenolate mofetil 500 mg p.o. twice daily Prednisone 10 mg tablets to take as instructed for joint pain Zanaflex 4 mg p.o. twice daily, as needed muscle spasticity Past medical history: Remote right occipital lobe infarction Coronary artery disease Bilateral carotid endarterectomy Lumbar pain with radiculopathy right lower extremity Mixed hyperlipidemia Essential hypertension Type 2 diabetes mellitus Positive antinuclear antibody Idiopathic pulmonary fibrosis Left adrenal mass Gastroesophageal reflux disease Hiatal hernia Chronic respiratory failure on home oxygen therapy Chronic hoarseness Chronic obstructive pulmonary disease Hypothyroidism Habits: None Family history: Mother Breast cancer Diabetes Father Hypertension Brother Hypertension Other TIA (transient ischemic attack) Review of Systems General: Reports: 10 or more systems reviewed and unremarkable except in HPI and below Medications/Allergies Home Medications ?Medication ?Instructions ?Recorded ?Confirmed ?Last Taken ?Type aspirin 325 mg tablet 325 mg PO QAM 05/11/24 05/31/25 05/11/24 History kezjghtktqvgauy-zrtheqwzqfndx-CS 1 5 ml PO .2 times day PRN allergy 08/03/24 05/31/25 Unknown Rx mg-2.5 mg-5 mg/5 mL oral solution symptoms #118 mL (Dimetapp DM Cold-Cough (PE)) magnesium oxide 400 mg PO BEDTIME 08/03/24 05/31/25 Unknown History Inogen #1 ea 08/23/24 05/31/25 Unknown Rx atorvastatin 80 mg tablet 80 mg PO QPM #30 tabs 03/27/25 05/31/25 Unknown Rx folic acid 1 mg tablet 1 mg PO DAILY #30 tabs 04/03/25 05/31/25 Unknown Rx methotrexate sodium 2.5 mg tablet 15 mg (6 x 2.5 mg) PO .q7day #30 04/03/25 05/31/25 Unknown Rx tabs mycophenolate mofetil 500 mg 500 mg PO BID #30 tabs 04/03/25 05/31/25 Unknown Rx tablet (CellCept) fluticasone fur. 100 mcg-umeclid 1 inh inhalation Q24H #60 ea 04/14/25 05/31/25 Unknown Rx 62.5 mcg-vilant 25 mcg inhalat.powder (Trelegy Ellipta) fenofibrate 160 mg tablet 160 mg PO DAILY #30 tabs 05/01/25 05/31/25 Unknown Rx gabapentin 300 mg capsule 300 mg PO TID #90 caps 05/01/25 05/31/25 Unknown Rx levothyroxine 25 mcg tablet 25 mcg PO QAM #30 tabs 05/01/25 05/31/25 Unknown Rx lisinopril 30 mg tablet 30 mg PO .in PM #30 tabs 05/01/25 05/31/25 Unknown Rx metformin 1,000 mg tablet 1,000 mg PO DAILY #30 tabs 05/01/25 05/31/25 Unknown Rx prednisone 10 mg tablet See Rx Instructions PO .COMPLEX 05/01/25 05/31/25 Unknown Rx PRN joint pain #30 tabs tizanidine 4 mg tablet 4 mg PO BID PRN muscle spasticity 05/01/25 05/31/25 Unknown Rx #60 tabs triamcinolone acetonide 0.1 % 1 applic topical BID #60 mL 05/01/25 05/31/25 Unknown Rx lotion famotidine 20 mg tablet 20 mg PO BID #60 tabs 06/03/25 Unknown Rx isosorbide mononitrate 60 mg 120 mg (2 x 60 mg) PO QAM #60 tabs 06/03/25 Unknown Rx tablet,extended release 24 hr Allergies Allergy/AdvReac Type Severity Reaction Status Date / Time clopidogrel (From Plavix) Allergy Intermediate rash Verified 05/31/25 15:15 PFSH Acute PFSH: Medical History (Updated 06/09/25 @ 12:24 by Corey Blunt MD) High risk medication use Hypoxic respiratory failure Positive antinuclear antibody IPF (idiopathic pulmonary fibrosis) Elevated troponin Pulmonary fibrosis Carotid stenosis, right COPD (chronic obstructive pulmonary disease) CAD (coronary artery disease) Lumbar pain with radiation down right leg Hyperlipidemia, mixed Essential hypertension Diabetes mellitus with hyperglycemia, without long-term current use of insulin History of heart attack 3 Surgical History History of ganglion cyst Left History of carotid endarterectomy Left at [facility] H/O dilation and curettage History of knee replacement both knees History of carpal tunnel surgery both History of back surgery History of hysterectomy Family History Mother Breast cancer Diabetes Father Hypertension Brother Hypertension Other TIA (transient ischemic attack) Social History Smoking and tobacco/nicotine status: former use of tobacco/nicotine Quit status (tobacco/nicotine): has quit using Year quit tobacco: 1998 Former quit date comment: 0.5 ppd X 30 Second hand smoke exposure: No Alcohol intake: never Substance/Drug Use: never Adopted: No Caregiver/support person: No Lives independently: Yes Household members: none Housing: House Marital status: / Number of children: 6 service: No Current occupational status: retired Pets and animals: Yes Pets & animals: dog(s) Do you think of yourself as: Straight/Heterosexual Current gender identity: Female Vitals/I&O/Wt Last Vital Signs Temp 98.2 F 06/09/25 11:41 Pulse 81 06/09/25 11:41 Resp 24 H 06/09/25 11:41 BP 82/58 06/09/25 11:41 Pulse Ox 91 06/09/25 11:41 O2 Del Method Nasal Cannula 06/09/25 11:41 O2 Flow Rate 6 06/09/25 11:41 Weight last 48 hrs Weight 149 lb Physical Exam Narrative: NIH stroke score =1 (mild dysarthria). Point of contact glucose Accu-Chek 109 Stat noncontrast thrombolytic head CT revealed mild cerebral and cerebellar atrophy and small vessel disease. Remote RIGHT occipital lobe infarct. Since the patient's NIH stroke score =1 the patient was not a candidate for intravenous thrombolytics and no intravenous thrombolytics were administered. There was reports of significant asymmetric blood pressures in the left versus right arm and patient complaining of uncomfortable sensation in her chest. Recommend patient undergo CT angiogram of head and neck and CT of chest to assess for any abnormal cardiac issues. Blood pressure taken in the right arm 82/58 blood pressure was reported to be elevated in the left arm The patient is currently alert and oriented x 3. Her speech is fairly fluent there is some hint of mild dysarthria. Patient follows commands. Patient answers questions appropriately. Visual maya did not reveal any obvious deficit although patient has history of right occipital lobe infarction that is remote. Extraocular movements intact. Pupils 3 mm round reactive light and accommodation. There was no nystagmus. Neck supple. Patient has signs of carotid endarterectomy scars bilaterally. Motor testing grossly nonfocal at 5/5. Patient was able to lift all extremities against gravity and against resistance. There was no drift. Deep tendon reflex revealed plantar responses bilaterally. Sensory examination was intact to touch. Throat clear. Lungs revealed no obvious wheezing. The patient does have history of chronic obstructive pulmonary disease. Heart sinus tachycardia. Extremities were negative for cyanosis. Data 06/09/25 11:40 06/09/25 11:40 A&P Assessment and plan 1. TIA involving right internal carotid artery: Impression: 1. Clinical history suggestive of right subcortical versus cortical TIA manifested as speech difficulty and left arm weakness. Currently patient's speech is displaying some questionable mild dysarthria there was no focal weakness. NIH stroke score =1 (mild dysarthria). Noncontrast head CT revealed remote right occipital lobe infarction. Since the patient's NIH stroke score =1 the patient was not a candidate for intravenous thrombolytics and no intravenous thrombolytics were administered. 2. Hypotension blood pressure 80/58 in the right upper extremity with reports of elevated blood pressure and left upper extremity suggestive of underlying cardiac issues versus stenosis of the subclavian artery 3. Type 2 diabetes mellitus 4. History of bilateral carotid endarterectomies, remote 5. History of coronary artery disease 6. Hypertension 7. Chronic obstructive pulmonary disease 8. Hypothyroidism Plan: 1. Recommend obtaining CT angiogram of the head and neck to assess for recurrent carotid stenosis and to assess for intracranial stenosis involving the right cerebral circulation and to to assess for large vessel occlusion to determine if patient requires immediate intervention at another facility 2. Recommend obtaining CT angiogram of the chest to assess for subclavian artery stenosis and evaluate for aortic aneurysm 3. Recommend obtaining lab for magnesium 4. Recommend cardiac evaluation for asymmetric blood pressures and complaints of chest discomfort and history of coronary artery disease 5. Agree with admission and cardiac telemetry monitoring 6. Neurochecks and vital signs per NIH stroke protocol and hospital protocol 7. Continue aspirin and cholesterol-lowering agents per NIH stroke protocol 8. Stroke education 9. Recommend obtaining fasting lipid profile if not already performed 10. Occupational Therapy, physical therapy and speech therapy consults 11. Fall precautions PDMP PDMP Reviewed: Not Reviewed Consult Attestations Medical Necessity Statement: The patient was evaluated by neurology for stroke alert emergency department room #6 Coding Level of Care Code 46974 Diagnoses TIA involving right internal carotid artery G45.1
[2025-06-09 12:11] LABS: Alanine Aminotransferase 15 U/L (0-33); Albumin Level 3.9 g/dL (3.5-5.2); Alkaline Phosphatase 43 U/L (35-105); Anion Gap 17.9 (5-19); Aspartate Amino Transferase 23 U/L (0-32); Blood Urea Nitrogen 19 mg/dL (8-23); Calcium 9.6 mg/dL (8.5-10.5); Carbon Dioxide 23 mmol/L (22-29); Chloride 106 mmol/L (98-107); Creatinine Clr Calc Pharmacy 36.1541; Globulin 3.3 g/dL (1.3-4.6); Glucose 119 mg/dL (65-115); NT Pro B Type Natriuretic Pept 450 pg/mL (0-450); Osmolality Calculated 297 mOsm/kg (285-295); Potassium 4.9 mmol/L (3.5-5.1); Sodium 142 mmol/L (136-145); Total Protein 7.2 g/dL (6.6-8.7)
[2025-06-09 12:26] LABS: PCP Screen Urine Negative (Negative)
[2025-06-09] MEDS: iohexol 350 mg/mL 500 mL Btl (per mL) IV (12:46)
[2025-06-09 12:55] LABS: Glucose Urine UA Negative (Normal); Nitrate Urine Positive (Negative); Specific Gravity, Urine 1.020 (1.005-1.030); Universal Test for UA Present (0)
--- NOTE | 2025-06-09 13:10 | ECG_ITS ---
[facility] Date: 2025-06[facility]09 Pat Name: Anabell Reina Department: Room: Gender: Female [employer]: : 1945 Requested By: Olivia Wylie Order Number: [id number] Tad MD: Paul Irby M.D. Measurements Intervals Garrett Rate: 97 P: 51 KS: 165 QRS: -11 QRSD: 88 T: 29 QT: 358 QTc: 455 Interpretive Statements SINUS RHYTHM POSSIBLE LEFT ATRIAL ENLARGEMENT [-0.1mV P-WAVE IN V1/V2] MINIMAL ST DEPRESSION [0.025+ mV ST DEPRESSION] Compared to ECG 05/11/2024 12:49:07 ST (T wave) deviation now present Left-axis deviation no longer present T-wave abnormality no longer present Possible ischemia no longer present Electronically Signed On 06-09-2025 13:44:16 CDT by Paul Irby M.D. [email or web address]
[2025-06-09 13:11] LABS: ABG PCO2 39.2 mmHg (35-45); ABG PH Result 7.34 (7.35-7.45); Alveolar-Arterial Oxygen Gradi 27.7 mmHg (5-10); Arterial Blood Gas Hematocrit 43.1 % (37-47); Blood Gas Allen Test Pos; Blood Gas LPM 6.0 %; Blood Gas Operator Identificat glc; Blood Gas Sample Site Radial, right; Blood Gas Sample Type Arterial; Carboxyhemoglobin 0.9 %THgb (0.4-20.1); Glucose Level-ABG 79.0 mg/dL (70-115); HCO3 ABG 21.0 mmol/L (22-26); Ionized Calcium Level - ABG 1.2 mmol/L (1.1-1.4); Methemoglobin 0.9 % (0.4-1.5); Oxygen Saturation ABG 89.3; PO2 ABG 59.3 mmHg (80.0-100.0); PO2 FiO2 Ratio Arterial Blood 131; Potassium Level - ABG 4.3 mmol/L (3.5-5.0); Sodium Level - ABG 141.0 mmol/L (131-143)
[2025-06-09 13:32] LABS: Reflex Lactate Order REFLEX LACTIC ORDERD
[2025-06-09] MEDS: cefepime 2,000 mg SDV 2000 MG IVP (14:07)
[2025-06-09 15:32] LABS: Lactic Acid level (Lactate) 1.3 mmol/L (0.5-2.2)
[2025-06-09] MEDS: heparin drip 25,000 UNIT/500 ML PREMIX 19 UNIT IV (15:39)
[2025-06-09] MEDS: heparin 5,000 unit/mL INJ 1 mL IVP (15:41)
--- NOTE | 2025-06-09 19:07 | PC.NURSE ---
Report called to Sonja Griffiths RN at [facility]. pt transferred for cardiovascular surgery. awaiting transfer from [facility].
== END 2025-06-09 20:01 | disposition short-term general hospital (02) ==
PROVIDERS: Emergency Provider Emergency Medicine; PCP Nurse Practitioner
DX: G45.9 Transient cerebral ischemic attack, unspecified (principal); I65.21 Occlusion and stenosis of right carotid artery; I74.2 Embolism and thrombosis of arteries of the upper extremities; N39.0 Urinary tract infection, site not specified; Z86.73 Personal history of transient ischemic attack (TIA), and cerebral infarction without residual deficits; I25.10 Atherosclerotic heart disease of native coronary artery without angina pectoris; I10 Essential (primary) hypertension; E11.9 Type 2 diabetes mellitus without complications; E78.5 Hyperlipidemia, unspecified; J44.9 Chronic obstructive pulmonary disease, unspecified; I25.2 Old myocardial infarction
CPT/HCPCS: 36415; 36416; 36600; 70450; 70496; 70498; 80051; 80053; 80306; 81001; 82330; 82805; 82962; 83605; 83880; 85025; 85610; 85730; 86140; 87040; 87077; 87086; 87186; 93005; 96361; 96374; 96375; 99285; J0692; J1644; J7030

== ENCOUNTER → 2025-06-19 12:07 | Outpatient (BNVA) | payer OTHER, MEDICAID, SELFPAY | PROVIDERS: PCP Nurse Practitioner; Visit Provider Internal Medicine Cardiovascular Disease | DX: I11.0 Hypertensive heart disease with heart failure (principal); I50.30 Unspecified diastolic (congestive) heart failure; I25.10 Atherosclerotic heart disease of native coronary artery without angina pectoris; M06.9 Rheumatoid arthritis, unspecified; I48.91 Unspecified atrial fibrillation; Z79.01 Long term (current) use of anticoagulants; Z79.82 Long term (current) use of aspirin; Z87.891 Personal history of nicotine dependence; I25.2 Old myocardial infarction | CPT/HCPCS: 99214 ==

== ENCOUNTER → 2025-07-17 13:52 | Outpatient (BNVA) | payer OTHER, MEDICAID, SELFPAY | PROVIDERS: PCP Nurse Practitioner; Visit Provider Internal Medicine Rheumatology | DX: J84.10 Pulmonary fibrosis, unspecified (principal); J96.11 Chronic respiratory failure with hypoxia; Z99.81 Dependence on supplemental oxygen; J84.9 Interstitial pulmonary disease, unspecified; K21.9 Gastro-esophageal reflux disease without esophagitis; K44.9 Diaphragmatic hernia without obstruction or gangrene; J43.9 Emphysema, unspecified; Z87.891 Personal history of nicotine dependence; J84.89 Other specified interstitial pulmonary diseases; E27.8 Other specified disorders of adrenal gland; R76.8 Other specified abnormal immunological findings in serum | CPT/HCPCS: 99215 ==

== ENCOUNTER 2025-08-15 08:14 | Outpatient (CLI) | payer OTHER, MEDICAID, SELFPAY ==
--- NOTE | 2025-08-15 08:28 | USCV_ITS ---
[facility] 80 Gender: F : 1945 Exam Date: 08/15/2025 08:51 Ordering Phys: Paco Jo Technologist: [place] [facility] [place]: sob BP: 120 / 70 HR: 73 Rhythm: Sinus Technical Quality: Adequate MEASUREMENTS (Male / Female) Normal Values 2D ECHO LV Diastolic Diameter PLAX 3.5 cm 4.2 - 5.9 / 3.9 - 5.3 cm IVS Systolic Thickness 1.9 cm LVPW Diastolic Thickness 1.3 cm 0.6 - 1.0 / 0.6 - 0.9 cm LVPW Systolic Thickness 1.3 cm LVOT Diameter 2.1 cm LV Ejection Fraction 2D Teich 69.9 % LV Ejection Fraction MOD 4C 68.7 % LV Ejection Fraction MOD 2C 70.7 % LV Ejection Fraction 2C AL 70.6 % LA Diameter 3.6 cm RA Systolic Volume 4C AL 35.9 ml RA Systolic Volume 4C MOD 36.1 ml LA Sys Volume AL 65.0 cm cubed LA Sys Volume Index AL 39.0 cm cubed/m squared Aorta at Sinotubular Diameter 2.2 cm IVC Diameter 1.7 cm M-MODE LA Ao Ratio MM 1.4 MV E Point Septal Separation 1.6 cm AV Cusp Separation MM 1.5 cm DOPPLER AV Peak Velocity 127.0 cm/s LVOT Peak Velocity 97.0 cm/s AV Area Cont Eq vti 3.4 cm squared AV Area Cont Eq pk 2.6 cm squared MV Peak Velocity 130.0 cm/s MV Area PHT 2.1 cm squared Mitral E to A Ratio 0.7 TV Peak Velocity 132.5 cm/s TR Peak Velocity 156.0 cm/s TR Peak Gradient 9.7 mmHg TV Peak E Velocity 97.0 cm/s PV Peak Velocity 106.7 cm/s FINDINGS Left Ventricle Normal left ventricular size, systolic function and ejection fraction is 70%. Indeterminate diastolic function of the left ventricle due to severe mitral annular calcification. Moderate hypertrophy of the septum and mild hypertrophy of the posterior wall of the left ventricle. Right Ventricle Normal right ventricular size and systolic function. Right Atrium Normal right atrial size. Left Atrium Mildly increased left atrial size. IA Septum Normal appearance of the interatrial septum. Mitral Valve Severe mitral annular calcification. Mild mitral valve stenosis with mean PG of 2 mmHg. No regurgitation. Aortic Valve Normal aortic valve structure. No aortic valve stenosis or regurgitation. Tricuspid Valve Normal tricuspid valve structure. No tricuspid valve stenosis. Trace regurgitation. Normal pulmonary pressure. Pulmonic Valve Normal pulmonic valve structure. No pulmonic valve stenosis. Mild regurgitation. Pericardium No pericardial effusion. Aorta Normal diameter of the aortic root and ascending thoracic aorta. IVC Normal IVC diameter. CONCLUSIONS Normal left ventricular size, systolic function and ejection fraction is 70%. Indeterminate diastolic function of the left ventricle due to severe mitral annular calcification. Moderate hypertrophy of the septum and mild hypertrophy of the posterior wall of the left ventricle. Normal right ventricular size and systolic function. No significant valvular dysfunction. Clinton Ac MD, FACC (Electronically Signed) Final Date: 19 August 2025 18:08 S
[2025-08-15 09:24] LABS: Hematocrit 41.3 % (36-47); Hemoglobin 13.30 g/dL (11.27-16.99); Mean Corpuscular HGB Conc 32.2 g/dL (30-55); Mean Corpuscular Hemoglobin 31.6 pg (27-33); Mean Corpuscular Volume 98.1 fl (85-98); Nucleated Red Blood Cells % 0 %; Platelet Count 269 10^3/cmm (157-399); Red Blood Count 4.21 10^6/uL (3.85-5.65); White Blood Count 6.56 10^3/uL (3.29-11.43)
[2025-08-15 09:46] LABS: Alanine Aminotransferase 15 U/L (0-33); Albumin Level 4.0 g/dL (3.5-5.2); Alkaline Phosphatase 60 U/L (35-105); Aspartate Amino Transferase 24 U/L (0-32); Globulin 2.9 g/dL (1.3-4.6); Total Protein 6.9 g/dL (6.6-8.7)
== END 2025-08-15 08:15 | disposition home or self-care (01) ==
LOC: RAD 08:20
PROVIDERS: Internal Medicine Rheumatology; PCP Nurse Practitioner; Visit Provider Internal Medicine
DX: Z79.899 Other long term (current) drug therapy (principal); I34.81 Nonrheumatic mitral (valve) annulus calcification; R94.39 Abnormal result of other cardiovascular function study
CPT/HCPCS: 36415; 80076; 82565; 85025; 85651; 86140; 93306

== ENCOUNTER 2025-08-15 08:30 | Outpatient (CLI) | payer OTHER, MEDICAID, SELFPAY ==
--- NOTE | 2025-08-15 08:30 | USCV_ITS ---
[facility] 80 Gender: F : 1945 Exam Date: 08/15/2025 08:51 Ordering Phys: Paco Jo Technologist: [place]am [place] [facility] [place]: sob BP: 120 / 70 HR: 73 Rhythm: Sinus Technical Quality: Adequate MEASUREMENTS (Male / Female) Normal Values 2D ECHO LV Diastolic Diameter PLAX 3.5 cm 4.2 - 5.9 / 3.9 - 5.3 cm IVS Systolic Thickness 1.9 cm LVPW Diastolic Thickness 1.3 cm 0.6 - 1.0 / 0.6 - 0.9 cm LVPW Systolic Thickness 1.3 cm LVOT Diameter 2.1 cm LV Ejection Fraction 2D Teich 69.9 % LV Ejection Fraction MOD 4C 68.7 % LV Ejection Fraction MOD 2C 70.7 % LV Ejection Fraction 2C AL 70.6 % LA Diameter 3.6 cm RA Systolic Volume 4C AL 35.9 ml RA Systolic Volume 4C MOD 36.1 ml LA Sys Volume AL 65.0 cm cubed LA Sys Volume Index AL 39.0 cm cubed/m squared Aorta at Sinotubular Diameter 2.2 cm IVC Diameter 1.7 cm M-MODE LA Ao Ratio MM 1.4 MV E Point Septal Separation 1.6 cm AV Cusp Separation MM 1.5 cm DOPPLER AV Peak Velocity 127.0 cm/s LVOT Peak Velocity 97.0 cm/s AV Area Cont Eq vti 3.4 cm squared AV Area Cont Eq pk 2.6 cm squared MV Peak Velocity 130.0 cm/s MV Area PHT 2.1 cm squared Mitral E to A Ratio 0.7 TV Peak Velocity 132.5 cm/s TR Peak Velocity 156.0 cm/s TR Peak Gradient 9.7 mmHg TV Peak E Velocity 97.0 cm/s PV Peak Velocity 106.7 cm/s FINDINGS Left Ventricle Normal left ventricular size, systolic function and ejection fraction is 70%. Indeterminate diastolic function of the left ventricle due to severe mitral annular calcification. Moderate hypertrophy of the septum and mild hypertrophy of the posterior wall of the left ventricle. Right Ventricle Normal right ventricular size and systolic function. Right Atrium Normal right atrial size. Left Atrium Mildly increased left atrial size. IA Septum Normal appearance of the interatrial septum. Mitral Valve Severe mitral annular calcification. Mild mitral valve stenosis with mean PG of 2 mmHg. No regurgitation. Aortic Valve Normal aortic valve structure. No aortic valve stenosis or regurgitation. Tricuspid Valve Normal tricuspid valve structure. No tricuspid valve stenosis. Trace regurgitation. Normal pulmonary pressure. Pulmonic Valve Normal pulmonic valve structure. No pulmonic valve stenosis. Mild regurgitation. Pericardium No pericardial effusion. Aorta Normal diameter of the aortic root and ascending thoracic aorta. IVC Normal IVC diameter. CONCLUSIONS Normal left ventricular size, systolic function and ejection fraction is 70%. Indeterminate diastolic function of the left ventricle due to severe mitral annular calcification. Moderate hypertrophy of the septum and mild hypertrophy of the posterior wall of the left ventricle. Normal right ventricular size and systolic function. No significant valvular dysfunction. Clinton Ac MD, FACC (Electronically Signed) Final Date: 19 August 2025 18:08 S
== END 2025-08-15 08:31 | disposition home or self-care (01) ==
LOC: RAD 08-26 07:35
PROVIDERS: PCP Nurse Practitioner; Visit Provider Nurse Practitioner
DX: R06.02 Shortness of breath (principal); I50.9 Heart failure, unspecified; I34.2 Nonrheumatic mitral (valve) stenosis; I34.81 Nonrheumatic mitral (valve) annulus calcification; I37.1 Nonrheumatic pulmonary valve insufficiency
CPT/HCPCS: 93306

== ENCOUNTER → 2025-09-12 10:44 | Outpatient (BNVA) | payer OTHER, MEDICAID, SELFPAY | PROVIDERS: PCP Nurse Practitioner; Visit Provider Nurse Practitioner | DX: E11.65 Type 2 diabetes mellitus with hyperglycemia (principal); E03.8 Other specified hypothyroidism; E55.9 Vitamin D deficiency, unspecified | CPT/HCPCS: 80053; 80061; 82306; 83036; 84443 ==

== ENCOUNTER 2025-09-19 12:59 | Outpatient (CLI) | payer OTHER, MEDICAID, SELFPAY ==
--- NOTE | 2025-09-19 13:30 | XR_ITS ---
WS: [id number] SCREENING DEXA SCAN [employer] CLINICAL INFORMATION: Z78.0 - Asymptomatic menopausal state COMPARISON: None. FINDINGS: The LEFT forearm bone mineral density measures 0.684. This corresponds to a T score score of -2.2 and Z score of 0.4. Left femoral neck bone mineral density measures 0.876 g/cm2. This corresponds to a T score of -1.0 and Z score of 1.0. Right femoral neck bone mineral density measures 0.846 g/cm2. This corresponds to a T score -1.3of and Z score of 0.7. Mean femoral neck bone mineral density measures 0.861 g/cm2. This corresponds to a T score of -1.2 and Z score of 0.8. XR/XR DEXA axial skeleton* [id number] IMPRESSION: Osteopenia LEFT forearm. Osteopenia femoral necks. Patient's FRAX calculated 10 year probability for major osteoporotic fracture i s 40.1% and osteoporotic hip fracture is 28.36%.
== END 2025-09-19 13:00 | disposition home or self-care (01) ==
LOC: RAD 13:00
PROVIDERS: PCP Nurse Practitioner; Visit Provider Nurse Practitioner
DX: Z13.820 Encounter for screening for osteoporosis (principal); Z78.0 Asymptomatic menopausal state; M85.89 Other specified disorders of bone density and structure, multiple sites
CPT/HCPCS: 77080